=== PATIENT | female | born 1970 | race Caucasian/White ===

== ENCOUNTER 2019-03-09 08:34 | Emergency (ER) | payer MEDICAID, SELFPAY ==
[2019-03-09 08:36] VITALS: BP 98/75; PULSE 128; RESP 20; TEMP 36.7; O2SAT 98; BMI 18.8
[2019-03-09] MEDS: Orphenadrine 60 MG/2 ML Ampul IM (08:56)
[2019-03-09] MEDS: HYDROmorphone 1 MG/ML Syringe IM (08:56)
[2019-03-09 09:02] VITALS: BP 127/90; PULSE 115; RESP 16; TEMP 36.6; O2SAT 98
--- NOTE | 2019-03-09 09:02 | ED.VISSUMM ---
- ER Visit Summary Date of Service: 03/09/19 Chief Complaint: [Back pain] History of Present Illness: The patient is a 49 F [presents the emergency department complaint of pain in her back that started yesterday. Patient states she is visiting her mother who lives in [place] from [place]. Patient states that she ran into an old friend who gave her a big bearhug and picked her up off the ground and she immediately experienced discomfort in her low back. Patient tells me that she had a lumbar fusion in January. Patient states that since her surgery she is had numbness in her left leg. Patient now complains of severe low back pain radiating into her left leg. She denies loss of bowel or bladder. Patient states that at times it feels like her legs want to give out. Patient is able to ambulate. Patient denies urinary symptoms. She denies any fevers.] Physical Examination: [HEENT-PERRLA, EOMI. Cranial nerves II through XII grossly intact. TMs clear. Mucous membranes moist. No adenopathy. Cardiovascular-regular rate and rhythm without murmur or ectopy Lungs-clear to auscultation, chest wall stable without crepitus or subcu emphysema Abdomen-normoactive bowel sounds, soft, nontender, no rebound or rigidity, no peritoneal signs. Back exam-patient has a well-healing scar over the lumbar spine. Patient has diffuse tenderness to palpation of her lumbar spine and lumbar paraspinal musculature. She has negative straight leg raises. Deep tendon reflexes are plus 2 out of 4 bilaterally at the patella and Achilles. Patient has decreased sensation to the left leg compared to the right leg. Normal L5 extension bilaterally. Extremities-intact ?4, normal range of motion, normal pulses, atraumatic] Test Results: [X-rays of the lumbar spine obtained showed prior fusion but no evidence of new fracture or movement of pedicle screws.] Emergency Department Course and Treatment: [Patient was medicated with Dilaudid and Norflex. Patient had good pain relief.] Treatment Plan: [Patient given a prescription for Percocet and Flexeril. Patient advised to follow-up with her surgeon within next 3 to 5 days. I do not feel patient has cauda equina.] Disposition: [Discharged home stable condition] Impression: [Back pain Lumbar strain] This note was generated with [employer] software. It may contain incorrect words, spelling, and punctuation that were not noted in review of the chart prior to signing ED Disposition - Plan for ED Patient: Referrals: Care Physician,No Primary [Primary Care Provider] -
--- NOTE | 2019-03-09 09:22 | RAD_ITS ---
STUDY: X-RAY - LUMBAR SPINE REASON FOR EXAM: Female, 49 years old. Injury one day ago TECHNIQUE: 3 view(s) of the lumbar spine were obtained. COMPARISON: None FINDINGS: Normal alignment. No compression deformities. Bilateral posterior pedicle fusions at L3 and L4. L5-S1 disc space fusion. L3-4 disc space fusion. Diffuse degenerative disc and facet disease. L4-5 laminectomies. Rectal sutures. Pelvic phleboliths. RAD/Lumbar Spine 2 or 3 Views IMPRESSION: No acute osseous injury is evident. Comment: If there is further clinical concern for a radiographically occult spinal fracture, consider CT correlation if possible. Electronically Signed: Dixon Arellano MD at 9:37 EDT Tel , Service support ,
--- NOTE | 2019-03-09 09:56 | ED.DEP ---
ED Disposition - Plan for ED Patient: Instructions: ED Sprain Strain Lumbar, ED Neck Back Pain General Prescriptions: Oxycodone HCl/Acetaminophen [Percocet 5/325] 1 tab PO Q6H PRN PRN 5 Days #20 tab PRN Reason: Pain Cyclobenzaprine [Flexeril] 10 mg PO TID PRN #20 tab PRN Reason: Muscle Spasm Referrals: Care Physician,No Primary [Primary Care Provider] - Additional Instructions: see your surgeon in 3-5 days
[2019-03-09 10:08] VITALS: BP 124/88; PULSE 100; RESP 16; TEMP 36.6; O2SAT 98
== END 2019-03-09 10:09 | disposition home or self-care (01) ==
PROVIDERS: Emergency Provider Emergency Medicine
DX: M54.9 Dorsalgia, unspecified (principal); S39.012A Strain of muscle, fascia and tendon of lower back, initial encounter; X50.9XXA Other and unspecified overexertion or strenuous movements or postures, initial encounter; Y93.9 Activity, unspecified; Y92.89 Other specified places as the place of occurrence of the external cause; Y99.9 Unspecified external cause status; Z98.1 Arthrodesis status; Z72.0 Tobacco use
CPT/HCPCS: 72100; 96372; 99282

== ENCOUNTER 2023-12-11 13:40 | Emergency (ER) | payer MEDICAID, SELFPAY ==
[2023-12-11 13:42] VITALS: BP 129/88; PULSE 97; RESP 20; TEMP 36.2; O2SAT 100; BMI 18.9
[2023-12-11 14:01] VITALS: BP 135/80; PULSE 86; RESP 18; O2SAT 100
--- NOTE | 2023-12-11 14:20 | CT_ITS ---
STUDY: CT ABDOMEN AND PELVIS WITHOUT CONTRAST REASON FOR EXAM: Female, 53 years old. Left flank pain. Shortness of breath and back pain. RADIATION DOSAGE (If Supplied By Facility): CTDIvol = ( 6.04 ) mGy, DLP = ( 238.55 ) mGycm TECHNIQUE: Transaxial images were obtained from the dome of the diaphragm to the symphysis pubis without oral contrast, and without intravenous contrast. Sagittal and coronal images were reconstructed. Individualized dose optimization techniques were used for this CT. COMPARISON: None. FINDINGS: Increased linear markings at the left lung base suggestive of scarring. The visualized portions of the heart are within normal limits. Normal liver. Normal gallbladder and extrahepatic biliary system. Normal spleen. Normal pancreas. Normal bilateral adrenal glands. Normal right kidney. There is a 2 mm nonobstructive calculus in the upper pole calyx of the left kidney. Normal visualized stomach. Normal small intestine. Normal colon. The appendix is visualized and appears normal. There is diffuse atherosclerotic calcification of the abdominal aorta, without a demonstrated aneurysm. Normal inferior vena cava. Normal retroperitoneum. Diffuse bladder wall thickening although the bladder is not completely distended at this time. Calcified phleboliths are seen within the pelvis. The patient is status post hysterectomy. Normal abdominal wall. Multilevel spinal fusion with interpedicular screw and marquita fixation device. CT/Abdomen/Pelvis without Cont IMPRESSION: 2 mm nonobstructive calculus in the upper pole calyx of the left kidney. Electronically Signed: Jake Guajardo MD at 15:07 EST ,
--- NOTE | 2023-12-11 14:26 | ED.RN ---
NO OLD EKG
[2023-12-11 14:29] LABS: Mucous, Urine 0 SEEN /hpf (<or=2+); Red Blood Cells-Urine 0 SEEN /hpf (0-5)
[2023-12-11] MEDS: Morphine 4 MG/ML Syringe IV (14:29)
[2023-12-11] MEDS: Ondansetron 4 MG/2 ML Vial IV (14:29)
[2023-12-11] MEDS: 0.9% Normal Saline (1000mL) 1,000 ML 150 ML IV (14:29)
--- NOTE | 2023-12-11 14:34 | EDS_ITS ---
HPI History of Present Illness Chief Complaint: Shortness of Breath Detail of Chief Complaint: Left lower back pain, shortness of breath Informant: patient Narrative Narrative: Patient presents secondary to left lower back pain. She states when she woke this morning she had pain in the left lower back. She felt well when she went to bed last evening. She has had 3 prior surgeries on her back. She states because of the pain she is feeling short of breath. She is not having chest pain. She took Tylenol around 8 AM this morning but did not get much relief. She denies urinary symptoms. No vomiting or diarrhea. [facility] Medical History (Updated 12/11/23 @ 16:[address] Diamond Sim MD) Asthma COPD (chronic obstructive pulmonary disease) High cholesterol Hypertension Home Medications albuterol sulfate 90 mcg/actuation aerosol inhaler (ProAir HFA) 1 - 2 puff inhalation Q6H PRN PRN Sob &/Or Wheezing 03/09/19 [History Last Taken Unknown] atorvastatin 40 mg tablet 40 mg PO QHS 03/09/19 [History Last Taken Unknown] hydrocodone-acetaminophen 5-325mg 5mg-325mg 1 tab PO Q6H PRN PRN Pain 3 days #10 TABLETS 12/11/23 [Rx Last Taken Unknown] lidocaine 5 % topical patch (Lidoderm) 1 patch topical DAILY #6 ea 12/11/23 [Rx Last Taken Unknown] Allergy/AdvReac Type Severity Reaction Status Date / Time gabapentin AdvReac Mild Upset Verified 12/11/23 13:42 Stomach naproxen [From Naprosyn] AdvReac Mild Upset Verified 12/11/23 13:42 Stomach Social History Smoking Status: Current every day smoker tobacco type: cigarettes ROS ROS ED Constitutional Constitutional ED: Denies chills or fever(s) Eyes Eyes: Denies discharge from eye(s) ENT ENT ED: Denies discharge from eye(s), rhinorrhea or sore throat Cardiovascular Cardiovascular: Denies chest pain Respiratory/Chest Respiratory/Chest: Reports dyspnea; Denies cough Gastrointestinal Gastrointestinal: Denies abdominal pain, diarrhea, nausea or vomiting Genitourinary Genitourinary ED: Denies dysuria Musculoskeletal Musculoskeletal: Reports back pain; Denies extremity pain Integumentary Denies Abrasions or rash Neurologic Neurologic: Denies headache(s) or weakness Psychiatric Psychiatric: Reports anxiety; Denies depression Allergic/Immunologic Allergic/Immunologic ED: Denies lip swelling or urticaria EXAM Physical Exam Const Vital Signs: 12/11/23 13:42 12/11/23 14:01 12/11/23 15:00 Temperature 97.1 F L Temperature Source Temporal Pulse Rate 97 86 Respiratory Rate 20 H 18 Respiratory Effort Short of Breath Blood Pressure 129/88 H 135/80 H Blood Pressure Mean 101 98 Pulse Ox 100 100 Oxygen Delivery Method Room Air Room Air Positive well nourished and well developed General Appearance ED: well developed HEENT Reports moist mucous membranes Eyes EOMs intact bilaterally Chest Wall inspection of chest normal and palpation of chest normal Resp normal respiratory effort and clear to auscultation bilaterally Cardio regular rate and regular rhythm GI non-tender Palpation: soft Back/Spine Back/Spine Narrative: Reproducible tenderness in the left lumbar paraspinal muscles. No overlying skin change. Extremity normal to inspection Neuro oriented x3 Neuro Narrative: No focal neurologic deficit. 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 EKG obtained to evaluate for cardiac arrhythmia/ischemia. IV line established. Labwork obtained to evaluate for leukocytosis, anemia, and electrolyte derangement. Urinalysis obtained to evaluate for infection/hematuria. Chest x-ray obtained to evaluate for acute lung pathology, cardiac size, or mediastinal abnormality. CT flank obtained to evaluate for renal abnormality, kidney stone, bowel abnormality. Patient treated with morphine and Zofran for pain control. History & Record Review Discussion w/independent historian: Patient Lab Data Attestation: I reviewed the patient's lab results. Labs: Laboratory Results - last 24 hr 12/11/23 14:10 WBC 9.4 RBC 4.64 Hgb 13.5 Hct 41.1 MCV 88.6 MCH 29.1 MCHC 32.8 RDW Std Deviation 40.9 RDW Coeff of Otilia 12.6 Plt Count 323 MPV 9.8 Immature Gran % (Auto) 0.100 Neut % (Auto) 53.8 Lymph % (Auto) 38.5 [place] % (Auto) 5.8 Eos % (Auto) 1.5 Baso % (Auto) 0.3 Absolute Neuts (auto) 5.1 Absolute Lymphs (auto) 3.61 Nucleated RBC % 0 Sodium 142 Potassium 3.9 Chloride 109 H Carbon Dioxide 29.0 Anion Gap 4 L BUN 13 Creatinine 1.05 H Estim Creat Clear Calc 44.50 Est GFR (MDRD) Af Amer 70 Est GFR (MDRD) Non-Af 58 L BUN/Creatinine Ratio 12.4 Glucose 92 Calcium 9.3 Urine Color Yellow Urine Clarity Sl. Cloudy Urine pH 5.0 Ur Specific [place] 1.025 Urine Protein 30 H Urine Glucose (UA) Normal Urine Ketones 5 H Urine Occult Blood Negative Urine Nitrite Negative Urine Bilirubin Negative Urine Urobilinogen 1 H Ur Leukocyte Esterase 25 H Urine RBC 0 SEEN Urine WBC 0-5 SEEN Ur Squamous Epith Cells 5-10 SEEN Urine Bacteria 1+ Urine Mucus 0 SEEN Radiography Chest X-Ray - ED: 1 View, Read by ED Physician and - (Changes consistent with COPD. No infiltrate. No pneumothorax.) Diagnostic Testing: Clinical Impression(s) from Imaging Studies Abdomen/Pelvis CT 12/11/23 14:20 IMPRESSION: 2 mm nonobstructive calculus in the upper pole calyx of the left kidney. Electronically Signed: Jake Guajardo MD at 15:07 EST , Chest X-Ray 12/11/23 14:35 IMPRESSION: Hyperinflation. The lungs are clear. Electronically Signed: Jake Guajardo MD at 14:54 EST , EKG Initial EKG: Attestation: I personally reviewed and interpreted this EKG as follows: Interpretation: Sinus Rhythm (Sinus at 67 with no acute ischemia.) Treatment and Re-Evaluation :: CBC was normal white count 9.4 with normal differential. Hemoglobin is 13.5. Chemistry studies without any significant abnormalities. Urinalysis reveals 5- 10 epithelial cells with no evidence of infection. Portable chest x-ray per my interpretation reveals hyperinflation consistent with COPD. No infiltrate and no pneumothorax. Radiology interpretation reviewed and agrees. EKG reveals no evidence of ischemia. CT scan of the flank reveals a 2 mm left intrarenal stone. No other acute findings noted. On repeat evaluation patient lying in bed, smiling and talking on the phone. She is in no acute distress. Test results were discussed with her. I did advise her that she does have a stone in her left kidney, but I do not believe this is the cause of her current pain. I think her pain is musculoskeletal in nature. I will write her prescription for [place] with Lidoderm patches. She is to follow-up with her primary care physician in 5 to 7 days. Return instructions provided. Discharge Plan Triage Chief Complaint: Shortness of Breath ED Provider: Diamond Sim Dx/Rx/DC Orders Clinical Impression: Musculoskeletal back pain Instructions: ED Back Pain (Acute or Chronic) Prescriptions: New hydrocodone-acetaminophen 5-325 mg tablet 1 tab PO Q6H PRN PRN (Reason: Pain) 3 Days Qty: 10 0RF lidocaine [Lidoderm] 5 % adhesive patch,medicated 1 patch topical DAILY Qty: 6 0RF Rx Instructions: leave on most painful area for up to 12 hrs No Action atorvastatin 40 MG tablet 40 mg PO QHS albuterol sulfate [ProAir HFA] 1 PUFF inhaler 1 - 2 puff inhalation Q6H PRN PRN (Reason: Sob &/Or Wheezing) Primary Care Provider: Care Physician,No Primary Referrals: Sabiha Joshi MD [Med Staff - [employer]] - 5-7 Days Care Physician,No Primary [Primary Care Provider] - Disposition Disposition: Home, Self Care
--- NOTE | 2023-12-11 14:35 | RAD_ITS ---
STUDY: X-RAY CHEST REASON FOR EXAM: Female, 53 years old. Sob TECHNIQUE: Single AP portable view of the chest. COMPARISON: None. FINDINGS: EKG electrodes are seen. There is hyperinflation of the lungs consistent with chronic obstructive lung disease (COPD). There is no demonstrated pleural abnormality. Normal size heart. Normal mediastinum and marizol. Normal visualized pulmonary arteries. Normal visualized aortic arch and descending thoracic aorta. Normal visualized thoracic spine. Normal visualized ribs, clavicles, and shoulders. There is no demonstrated abnormality of the visualized soft tissue structures of the upper abdomen. RAD/Chest 1 View (Portable) IMPRESSION: Hyperinflation. The lungs are clear. Electronically Signed: Jake Guajardo MD at 14:54 EST ,
[2023-12-11 14:36] LABS: Absolute Lymphocyte Count 3.61 X10^3/uL (0.83-4.51); Absolute Neutrophil Count 5.1 X10^3/uL (2.0-7.7); Basophil# 0.03 X10^3/uL; Basophil% 0.3 % (0-1); Color, Urine Yellow (Yellow); Eosinophil# 0.14 X10^3/uL; Eosinophils% 1.5 % (0-5); Glucose, Dipstick Normal (Normal); Hematocrit 41.1 % (37-47); Hemoglobin 13.5 g/dL (12.0-15.0); Ketone-Dipstick 5 mg/dl (Negative); Leukocyte Esterase-Dipstick 25 /ul (Negative); Lymphocyte # 3.61 X10^3/ul (0.83-4.51); Lymphocyte % 38.5 % (19-41); Mean Corp Hgb Conc 32.8 g/dL (32-36); Mean Corpuscular Hgb 29.1 pg (27.0-32.0); Mean Corpuscular Volume 88.6 fL (81-99); Mean Platelet Vol. 9.8 fl (6.2-12.0); Monocyte# 0.54 X10^3/uL; Monocyte% 5.8 % (0-10); NRBC Flagged by Analyzer 0 % (0-5); Neutrophil # 5.05 X10^3/uL (2.7-7.7); Neutrophil % 53.8 % (47-70); Nitrite-Dipstick Negative (Negative); Occult Blood-Urine Negative /ul (Negative); Platelet Count 323 K/mm3 (150-450); Protein-Dipstick 30 mg/dl (Negative); RBC Distribution Width CV 12.6 % (11.6-14.6); RBC Distribution Width SD 40.9 fl (35.1-43.9); Red Blood Count 4.64 M/mm3 (4.2-5.4); Specific Gravity, Urine 1.025 (1.002-1.030); Urine Bilirubin Dipstick Negative (Negative); Urine Clarity Sl. Cloudy (Clear); Urine Urobilinogen 1 mg/dl (Normal); White Blood Count 9.4 K/mm3 (4.4-11.0)
[2023-12-11 14:45] LABS: Bacteria 1+ /hpf (None Seen); Squamous Epithelial Cells - UA 5-10 SEEN /hpf (5-10); White Blood Cells 0-5 SEEN /hpf (0-5)
[2023-12-11 14:49] LABS: Anion Gap 4 (5-15); BUN 13 mg/dL (7-18); BUN/Creat Ratio 12.4 RATIO (10-20); Calcium,Total 9.3 mg/dL (8.5-10.1); Chloride 109 mmol/L (98-107); Creatinine, Serum 1.05 mg/dL (0.55-1.02); EST Glomerular Filtration Rate 58 mL/min (>60); Est Glom Filt Rate - Afr Amer 70 mL/min (>60); Glucose 92 mg/dL (74-106); Potassium 3.9 mmol/L (3.5-5.1); Sodium Level 142 mmol/L (136-145)
[2023-12-11 15:00] VITALS: O2SAT 99
--- OUTSIDE RECORDS SUMMARY | 2023-12-11 15:21 | XMS RPT_ITS | CCD ---
Author Name Unknown Address [address] [place] [address] Organization [facility] Care Team Providers Care Forest Logistics Manager Name Role Phone Colin Pandya Unavailable Unavailable Colin Pandya Unavailable Unavailable PARESH REEVES Attending Unavailable PARESH REEVES Admitting Unavailable Physician, PCP Unknown Primary Care Unavailab CRESENCIO Mauro Referring Unavailable GIN BANERJEE Primary Care Unava ilable SOTERO EISENBERG Consulting Unavailabl JEFRY Garcia Admitting Anneliese WILL Garcia Attending Unavailab le Gin Banerjee Primary Care Provider Gin Banerjee Primary Care Provider Field [id number], Akhil Unavailable Unavailable Gin Banerjee Primary Care Provider Gin Banerjee CNP Primary Care Prov ider HELDER DE LA TORRE Admitting Unavailable HELDER DE LA TORRE Referring Unavailable GIN BANERJEE Primary Care Unava ilable MARTELL KENNEDY Consulting Unavailable CALL, MERLYN A Referring Unavailable STEPHANIE SWEET Attending Unavailable GIN BANERJEE Primary Care Unava ilable MARTELL KENNEDY Admitting Unavailable BLESSING KAM Consulting Unavailab le CALL MERLYN A Attending Unavailable GIN BANERJEE Primary Care Unavailabl e Gin Banerjee CNP Primary Care Provider Field [address] PT, Akhil Unavailable Unavailab le Field [address] PT, Akhil Unavailable Unavailab le Lavonne Gin GARIBAY Primary Care Provider Field [address] PT, Akhil Unavailable Unavailab le Lavonne Gin GARIBAY Primary Care Provider Field [address] PT, Akhil Unavailable Unavailab haris Banerjee, Gin Primary Care UnavailPHOENIX Simon Admitting Unavailable PHOENIX Ramirez Attending Unavailable PHOENIX Ramirez Referring Unavailable Lavonne, PHOENIX Greenfield Attending Silviano Banerjee, PHOENIX [place] Referring Unavai labharis Banerjee, Gin Primary Care Unavailabl e Lavonne, PHOENIX Green[place] Admitting Unavai labharis Banerjee, Gin Primary Care Unavailabl e MD Dimas Palencia Attending Unavailable ALFIE LUNA Attending Unavailable LAVONNE, GIN Primary Care Unavailabl e LAVONNE, GIN Referring Unavailabl e JULIEN ROBBINS Attending Unavailable PCP, NONE Primary Care Unavailable CRISTIAN DE LA CRUZ Referring Unavailable LINDA YOUNGER Attending Unavailable GIN BANERJEE Primary Care UnavailLINDA Yu Admitting Unavailable Allergies Allergy Classification Reported Allergen(s) Allergy Type Date of Onset Reaction(s) Facility Anti-Epileptic Agents (2 sources) gabapentin; Translations: [GABAPENTIN] Drug Allergy 0 Diarrhea [facility] Opioid Agonists (2 sources) traMADol; Translations: [TRAMADOL] Drug Allergy 0 GI Intolerance [facility] (2 sources) No Known Medication Allergies; Translations: [No Known Medication Allergies] Propensity to adverse reactions to drug (disorder) [facility] Repository (13 sources) gabapentin; Translations: [Unknown] Drug Allergy 4 Diarrhea [facility] Repository (12 sources) traMADol; Translations: [traMADol] Drug Allergy 4 GI Intolerance [facility] (10 sources) pregabalin; Translations: [Lyrica] Drug Allergy 4 [facility] Medications Current Medications Medication Drug Class(es) Dates Sig (Normalized) Sig (Original) acetaminophen 325 mg oral tablet (4 sources) Start: 08-03-2021 End: 06-29-2021 take 2 tablets by mouth every four hours as needed acetaminophen (TYLENOL) 325 MG tablet Take 2 (two) tablets (650 mg total) by mouth every 4 (four) hours as needed . 30 tablet 0 06/19/2021 06/29/2021 Active Completed/Discontinued Medications Medication Drug Class(es) Dates Sig (Normalized) Sig (Original) acetaminophen 325 mg / HYDROcodone bitartrate 5 mg oral tablet (1 source) Opioid Agonist Start: 01-20-2020 End: 01-20-2020 take 1 tablet by mouth every four hours as needed 1 tablet, Oral, Every 4 hours PRN, moderate to severe pain, Starting [facility] 01/20/20 at 0254 albuterol 0.833 mg/ml / ipratropium bromide 0.167 mg/ml inhalation solution (6 sources) Anticholinergic, beta2-Adrenergic Agonist Start: 05-27-2023 End: 05-27-2023 albuterol 2.5mg-ipratropium 0.5mg/3ml (DUONEB) nebulizer soln 6 mL Problems Active Problems Problem Classification Problem Date Documented Da te Episodic/Chronic Acute bronchitis (2 sources) Acute bronchitis with bronchospasm; Translations: [Acute bronchitis, unspecified] Onset: 05-27-2023 Episodic Alcohol-related disorders (1 source) Alcohol intoxication; Translations: [Alcohol use, unspecified with intoxication, uncomplicated] Episodic Cardiac dysrhythmias (3 sources) Bradycardia; Translations: [Bradycardia] Onset: 08-28-2015 08-28-2015 Chronic Chronic obstructive pulmonary disease and bronchiectasis (6 sources) Chronic obstructive lung disease co-occurrent with acute bronchitis; Translations: [Chronic obstructive pulmonary disease with (acute) lower respiratory infection] Onset: 05-27-2023 Chronic E Codes: Fall (1 source) Fall; Translations: [Unspecified fall, initial encounter] Episodic Esophageal disorders (1 source) Gastro-esophageal reflux disease without esophagitis; Translations: [Gastro-esophageal reflux disease without esophagitis] Onset: 08-05-2023 Chronic Essential hypertension (1 source) Essential (primary) hypertension; Translations: [Essential (primary) hypertension] Onset: 05-27-2023 Chronic Hepatitis (1 source) Unspecified viral hepatitis C without hepatic coma; Translations: [Unspecified viral hepatitis C without hepatic coma] Onset: 05-27-2023 Episodic Immunizations and screening for infectious disease (1 source) Contact with or exposure to other viral diseases; Translations: [Lab test negative for COVID-19 virus] Episodic Intracranial injury (1 source) Concussion with no loss of consciousness; Translations: [Concussion without loss of consciousness, initial encounter] Episodic Mood disorders (1 source) Mood disorders; Translations: [Depression, unspecified] Onset: 05-27-2023 Open wounds of head; neck; and trunk (3 sources) Laceration of left eyelid; Translations: [Laceration without foreign body of left eyelid and periocular area, initial encounter] Onset: 06-18-2021 Episodic Other connective tissue disease (1 source) Fibromyalgia; Translations: [Fibromyalgia] Onset: 05-27-2023 Episodic Other connective tissue disease (1 source) Arthrodesis status; Translations: [Arthrodesis status] Onset: 05-27-2023 Episodic Other lower respiratory disease (1 source) Tachypnea; Translations: [Tachypnea, not elsewhere classified] Episodic Pneumonia (except that caused by tuberculosis or sexually transmitted disease) (1 source) Infective pneumonia; Translations: [Pneumonia, unspecified organism] Episodic Residual codes; unclassified (1 source) Tobacco user; Translations: [Tobacco use] Episodic Spondylosis; intervertebral disc disorders; other back problems (4 sources) Lumbar discitis; Translations: [Discitis, unspecified, lumbar region] Onset: 01-20-2020 01-20-2020 Chronic Spondylosis; intervertebral disc disorders; other back problems (2 sources) Acute low back pain; Translations: [Chronic low back pain] Episodic Substance-related disorders (3 sources) Smoker; Translations: [Nicotine dependence, unspecified, uncomplicated] Onset: 05-27-2023 Chronic Superficial injury; contusion (2 sources) Contusion of rib; Translations: [Contusion of left front wall of thorax, initial encounter] Onset: 05-27-2023 Episodic Unclassified (2 sources) M48.061 Onset: 11-17-2018 Urinary tract infections (1 source) Acute cystitis; Translations: [Acute cystitis with hematuria] Episodic Past or Other Problems Problem Classification Problem Date Documented Date Episodic/Chronic Cardiac dysrhythmias (6 sources) Bradycardia; Translations: [Bradycardia, unspecified] Onset: 08-28-2015 08-28-2015 Episodic Nonspecific chest pain (9 sources) Chest pain; Translations: [Chest pain, unspecified] Onset: 08-28-2015 08-28-2015 Episodic Other and unspecified benign neoplasm (14 sources) History of polyp of colon; Translations: [Personal history of colonic polyps] Onset: 03-14-2020 03-14-2020 Episodic Residual codes; unclassified (1 source) Postmenopausal state; Translations: [Post-menopausal] Episodic Residual codes; unclassified (7 sources) Family history of cancer of colon; Translations: [Family history of malignant neoplasm of digestive organs] Onset: 03-14-2020 03-14-2020 Episodic Residual codes; unclassified (7 sources) Family history of polyp of colon; Translations: [Family history of colonic polyps] Onset: 04-12-2020 04-12-2020 Episodic Results Test Name Value Interpretation Reference Range Facil ity Vital Signs Date Time Vital Sign Value Performing Clinician Facility 05-27-2023 19:32-0400 Body temperature 98.01 [degF] Linda Younger MD Work Phone: [facility] 05-27-2023 19:32-0400 Diastolic blood pressure 74 mm[Hg] Linda Younger MD Work Phone: [facility] 05-27-2023 19:32-0400 Heart rate 93 /min Linda Younger MD Work Phone: [facility] 05-27-2023 19:32-0400 Respiratory rate 24 /min Linda Younger MD Work Phone: [facility] 05-27-2023 19:32-0400 SaO2% (BldA) [Mass fraction] 99 % Linda Younger MD Work Phone: [facility] 05-27-2023 19:32-0400 Systolic blood pressure 129 mm[Hg] Linda Younger MD Work Phone: [facility] 05-27-2023 16:50-0400 Body height 154.9 cm Linda Younger MD Work Phone: [facility] 05-27-2023 16:50-0400 Body mass index (BMI) [Ratio] 16.25 kg/m2 Linda Younger MD Work Phone: [facility] 05-27-2023 16:50-0400 Body weight 39.01 kg Linda Younger MD Work Phone: [facility] 07-17-2022 14:31-0400 Heart rate 88 /min Cristina Esposito MD Work Phone: [facility] 07-17-2022 14:31-0400 SaO2% (BldA) [Mass fraction] 100 % Cristina Esposito MD Work Phone: [facility] 07-17-2022 14:00-0400 Body height 154.9 cm Cristina Esposito MD Work Phone: [phone] [address] 07-17-2022 14:00-0400 Body mass index (BMI) [Ratio] 17.76 kg/m2 Cristina Esposito MD Work Phone: [facility] 07-17-2022 14:00-0400 Body temperature 98.91 [degF] Cristina Esposito MD Work Phone: [facility] 07-17-2022 14:00-0400 Body weight 42.64 kg Cristina Esposito MD Work Phone: [facility] 07-17-2022 14:00-0400 Diastolic blood pressure 60 mm[Hg] Cristina Esposito MD Work Phone: [facility] 07-17-2022 14:00-0400 Respiratory rate 20 /min Cristina Esposito MD Work Phone: [facility] 07-17-2022 14:00-0400 Systolic blood pressure 137 mm[Hg] Cristina Esposito MD Work Phone: [facility] 05-04-2022 08:40-0400 Body temperature 98.1 [degF] Helder Waters MD Work Phone: [phone] [address] 05-04-2022 08:40-0400 Diastolic blood pressure 83 mm[Hg] Helder Waters MD Work Phone: [facility] 05-04-2022 08:40-0400 Heart rate 98 /min Helder Waters MD Work Phone: [facility] 05-04-2022 08:40-0400 Respiratory rate 24 /min Helder Waters MD Work Phone: [facility] 05-04-2022 08:40-0400 SaO2% (BldA) [Mass fraction] 99 % Helder Waters MD Work Phone: [facility] 05-04-2022 08:40-0400 Systolic blood pressure 142 mm[Hg] Helder Waters MD Work Phone: [phone] [place] [address] 05-04-2022 07:14-0400 Body height 154.9 cm Helder Waters MD Work Phone: [phone] [address] 05-04-2022 07:14-0400 Body mass index (BMI) [Ratio] 18.14 kg/m2 Helder Waters MD Work Phone: 5([phone])[phone] [address] 05-04-2022 07:14-0400 Body weight 43.55 kg Helder Waters MD Work Phone: [facility] 04-18-2022 11:40-0400 Body temperature 98.6 [degF] Remi Springer MD Work Phone: [facility] 04-18-2022 11:40-0400 Diastolic blood pressure 85 mm[Hg] Remi Springer MD Work Phone: [facility] 04-18-2022 11:40-0400 Heart rate 106 /min Remi Springer MD Work Phone: [facility] 04-18-2022 11:40-0400 Respiratory rate 18 /min Remi Springer MD Work Phone: [facility] 04-18-2022 11:40-0400 SaO2% (BldA) [Mass fraction] 99 % Remi Springer MD Work Phone: [facility] 04-18-2022 11:40-0400 Systolic blood pressure 162 mm[Hg] Remi Springer MD Work Phone: [employer] 04-18-2022 09:36-0400 Body height 154.9 cm Remi Springer MD Work Phone: [facility] [employer] [facility] [facility] 04-18-2022 09:36-0400 Body mass index (BMI) [Ratio] 18.14 kg/m2 Remi Springer MD Work Phone: [facility] 04-18-2022 09:36-0400 Body weight 43.55 kg Remi Springer MD Work Phone: [employer] 02-04-2022 19:44-0400 Body temperature 98.01 [degF] Cristina Esposito MD Work Phone: [facility] [employer] 02-04-2022 19:44-0400 Diastolic blood pressure 70 mm[Hg] Cristina Esposito MD Work Phone: [employer] 02-04-2022 19:44-0400 Heart rate 88 /min Cristina Esposito MD Work Phone: [employer] 02-04-2022 19:44-0400 Respiratory rate 20 /min Cristina Esposito MD Work Phone: [facility] [employer] 02-04-2022 19:44-0400 SaO2% (BldA) [Mass fraction] 99 % Cristina Esposito MD Work Phone: [employer] 02-04-2022 19:44-0400 Systolic blood pressure 138 mm[Hg] Cristina Esposito MD Work Phone: [employer] 02-04-2022 18:51-0400 Body height 154.9 cm Cristina Esposito MD Work Phone: [employer] 02-04-2022 18:51-0400 Body mass index (BMI) [Ratio] 18.14 kg/m2 Cristina Esposito MD Work Phone: [employer] 02-04-2022 18:51-0400 Body weight 43.55 kg Cristina Esposito MD Work Phone: [facility] 07-27-2021 20:01-0400 Body temperature 98.2 [degF] Linda Younger MD Work Phone: [facility] 07-27-2021 20:01-0400 Diastolic blood pressure 68 mm[Hg] Linda Younger MD Work Phone: [facility] 07-27-2021 20:01-0400 Heart rate 93 /min Linda Younger MD Work Phone: [facility] 07-27-2021 20:01-0400 Respiratory rate 16 /min Linda Younger MD Work Phone: [facility] 07-27-2021 20:01-0400 SaO2% (BldA) [Mass fraction] 95 % Linda Younger MD Work Phone: [facility] 07-27-2021 20:01-0400 Systolic blood pressure 128 mm[Hg] Linda Younger MD Work Phone: [facility] 07-27-2021 18:15-0400 Body height 154.9 cm Linda Younger MD Work Phone: [facility] 07-27-2021 18:15-0400 Body mass index (BMI) [Ratio] 18.89 kg/m2 Linda Younger MD Work Phone: [facility] 07-27-2021 18:15-0400 Body weight 45.36 kg Linda Younger MD Work Phone: [facility] 06-19-2021 16:57-0400 Body temperature 98.01 [degF] Helder De La Torre MD Work Phone: [facility] 06-19-2021 16:57-0400 Diastolic blood pressure 70 mm[Hg] Helder De La Torre MD Work Phone: [facility] 06-19-2021 16:57-0400 Heart rate 74 /min Helder De La Torre MD Work Phone: [facility] 06-19-2021 16:57-0400 Respiratory rate 15 /min Helder De La Torre MD Work Phone: [facility] 06-19-2021 16:57-0400 SaO2% (BldA) [Mass fraction] 95 % Helder De La Torre MD Work Phone: [facility] 06-19-2021 16:57-0400 Systolic blood pressure 113 mm[Hg] Helder De La Torre MD Work Phone: [facility] 06-18-2021 21:33-0400 Body height 154.9 cm Helder De La Torre MD Work Phone: [facility] 06-18-2021 21:33-0400 Body mass index (BMI) [Ratio] 20.41 kg/m2 Helder De La Torre MD Work Phone: [facility] 06-18-2021 21:33-0400 Body weight 48.99 kg Helder De La Torre MD Work Phone: [facility] 02-02-2020 14:04-0400 Body Temperature 97.9 [degF] Crispintimothy Pradhan [facility] 02-02-2020 14:04-0400 BP Diastolic 77 mm[Hg] Crispin Lorne [facility] 02-02-2020 14:04-0400 BP Systolic 143 mm[Hg] Crispin Lorne [facility] 02-02-2020 14:04-0400 Pulse (Heart Rate) 87 /min [facility] 02-02-2020 14:04-0400 Pulse Oximetry 100 % Crispin Lorne [facility] 02-02-2020 14:04-0400 Respiratory Rate 16 /min Crispin Lorne [facility] 02-02-2020 12:46-0400 BMI (Body Mass Index) 17.95 kg/m2 Crispin Lorne [facility] 02-02-2020 12:46-0400 Body weight 43.09 kg Crispin Lorne [facility] 02-02-2020 12:46-0400 Height 154.9 cm Crispin Lorne [facility] 01-20-2020 12:56-0500 Respiratory Rate 14 /min [facility] 01-20-2020 07:41-0500 Body Temperature 98.01 [degF] [facility] 01-20-2020 07:41-0500 BP Diastolic 72 mm[Hg] [facility] 01-20-2020 07:41-0500 BP Systolic 124 mm[Hg] [facility] 01-20-2020 07:41-0500 Pulse (Heart Rate) 70 /min [facility] 01-20-2020 07:41-0500 Pulse Oximetry 96 % [facility] 01-19-2020 22:19-0500 BMI (Body Mass Index) 17.95 kg/m2 [facility] 01-19-2020 22:19-0500 Body weight 43.09 kg [facility] 01-19-2020 22:19-0500 Height 154.9 cm [facility] 01-19-2019 14:47-0500 Systolic blood pressure PARESH [facility] 01-19-2019 10:03-0500 Systolic blood pressure PARESH [facility] Encounters Encounter Date Encounter Type Care Provider Facility Start: 08-05-2023 End: 08-05-2023 ambulatory JULIEN [facility] Start: 07-07-2023 Evaluation and management of inpatient MERCHANDISING ASSISTANT Ginhelen Banerjee [place] Start: 05-27-2023 End: 05-27-2023 Emergency department patient visit LINDA YOUNGER [facility] Start: 05-27-2023 End: 05-27-2023 Emergency department patient visit Linda Younger MD Work Phone: [facility] Emergency Dept Procedures Date Procedure Procedure Detail Performing Clinician Start: 05-27-2023 Radex ribs uni w/posteroant ch minimum 3 views Linda Younger MD Work Phone: Start: 07-17-2022 Radiologic exam ches t single view Naa Paulino APRN MERCHANDISING ASSISTANT Work Phone: Start: 07-17-2022 Sars-cov-2 detection by dna/rna Naa Paulino APRN MERCHANDISING ASSISTANT Work Phone: Start: 05-04-2022 Radiologic exam ches t single view Helder Waters MD Work Phone: Start: 05-04-2022 ABG WITH CO-OX, LYTE S, AND LACTATE Helder Waters MD Work Phone: Start: 05-04-2022 CBC W Auto Different ial panel - Blood Helder Waters MD Work Phone: Start: 05-04-2022 Comprehensive metabo lic panel Helder Waters MD Work Phone: Start: 05-04-2022 GLOMERULAR FILTRATION RATE Helder Waters MD Work Phone: Start: 05-04-2022 Sars-cov-2 detection by dna/rna Helder Waters MD Work Phone: Start: 05-04-2022 Ecg routine ecg w/le ast 12 lds trcg only w/o i&r Helder Waters MD Work Phone: Start: 04-18-2022 ABG (DRAW AND ANALYZE) Milton Doty APRN MERCHANDISING ASSISTANT Work Phone: Start: 04-18-2022 Radiologic exam ches t single view Milton Doty APRN MERCHANDISING ASSISTANT Work Phone: Start: 04-18-2022 Infectious agent dna /rna influenza 1st 2 types Milton Doty APRN MERCHANDISING ASSISTANT Work Phone: Start: 04-18-2022 Sars-cov-2 detection by dna/rna Milton Doty APRN MERCHANDISING ASSISTANT Work Phone: Start: 04-18-2022 CBC W Auto Different ial panel - Blood Milton Doty APRN MERCHANDISING ASSISTANT Work Phone: Start: 04-18-2022 Comprehensive metabo lic panel Milton Doty APRN MERCHANDISING ASSISTANT Work Phone: Start: 04-18-2022 GLOMERULAR FILTRATION RATE Milton Doty APRN MERCHANDISING ASSISTANT Work Phone: Start: 04-18-2022 Ecg routine ecg w/le ast 12 lds trcg only w/o i&r Milton Doty APRN MERCHANDISING ASSISTANT Work Phone: Start: 02-04-2022 Urnls dip stick/tabl et rgnt non-auto w/o micrscp Felicity Jones DO Work Phone: Start: 07-27-2021 Radiologic exam ches t single view Milton Doty APRN [facility] Work Phone: Start: 07-27-2021 Sars-cov-2 detection by dna/rna Linda Younger MD Work Phone: Start: 07-27-2021 Ecg routine ecg w/le ast 12 lds trcg only w/o i&r Milton Doty APRN [facility] Work Phone: Start: 07-27-2021 Basic metabolic pane l calcium total Milton Doty APRN [facility] Work Phone: Start: 07-27-2021 CBC W Auto Different ial panel - Blood Milton Doty APRN [facility] Work Phone: Start: 07-27-2021 GLOMERULAR FILTRATION RATE Milton Doty APRN [facility] Work Phone: Start: 06-19-2021 SARS-CoV-2 (COVID-19 ) RdRp gene [Presence] in Respiratory specimen by MARTHA with probe detection Radha Noble [facility] Work Phone: Start: 06-19-2021 Basic metabolic pane l calcium total Ena Brearey DO Work Phone: Start: 06-18-2021 Radiologic exam ches t single view Helder De La Torre MD Work Phone: Start: 06-18-2021 Computerized tomogra phy, limited studies Helder De La Torre MD Work Phone: Start: 06-18-2021 Basic metabolic pane l calcium total Helder De La Torre MD Work Phone: Start: 06-18-2021 Blood ethanol measurement Helder De La Torre MD Work Phone: Start: 04-24-2020 Dxa bone density danica dy 1/> sites axial skel Gin Banerjee Work Phone: Start: 01-20-2020 C reactive protein [Mass/volume] in Serum or Plasma Jefry Wallerrdena Work Phone: Start: 01-20-2020 Complete blood count with white cell differential, automated Jefry Wallerrdena Work Phone: Start: 01-20-2020 Complete blood count with white cell differential, manual Jefry Wallerrdena Work Phone: Start: 01-20-2020 Erythrocyte sediment ation rate by Westergren method Jefry Wallerrdena Work Phone: Start: 01-20-2020 HERBERT TOP Jefry Wallerrdena Work Phone: Start: 01-20-2020 LIGHT BLUE TOP Jefry Wallerrdena Work Phone: Start: 01-20-2020 LIGHT GREEN TOP Jefry Connerawardena Work Phone: Start: 01-20-2020 PINK TOP Jefry Connerawardena Work Phone: Start: 01-20-2020 RAINBOW DRAW Jefry Wallerrdena Work Phone: Start: 01-19-2020 Influenza virus A AN D B antigen assay Naa Thurman Work Phone: Start: 01-19-2020 End: 01-19-2020 Magnetic resonance imaging Naa Bates Work Phone: Start: 01-19-2020 Radiographic imaging procedure Naa Thurman Work Phone: Start: 01-19-2020 Computerized tomogra phy, limited studies Naa Thurman Work Phone: Plan of Treatment Date Care Activity Detail Author Start: 08-07-2025 Colonoscopy COLONOSCOPY 10 YR [facility] Start: 08-07-2025 Screening for malignant neoplasm of colon [facility] Start: 08-12-2023 ambulatory Ambulatory [facility] Start: 07-18-2023 Influenza vaccination given INFLUENZA VACCINE (#1) [facility] Start: 07-18-2022 Influenza vaccination given [facility] Start: 10-04-2021 End: 10-04-2021 Patient encounter procedure 10/04/2021 Office Visit Gastroenterology Carlita Robison, ARCHIVAL STUDIES PROFESSOR VACCINATOR [address] [place] [address] [facility] Start: 07-18-2021 Influenza vaccination given INFLUENZA VACCINE (#1) [facility] Start: 07-18-2020 Influenza vaccination given [facility] Start: 06-08-2020 End: 06-08-2020 Hospital Encounter [facility] Immunizations Immunization Date Immunization Notes Care Provider Fa cili 10-31-2009 influenza virus vacc ine, unspecified formulation Crispin Pradhan [facility] [facility] Payers Date Payer Category Payer Unknown 2016 Unknown [id number] 2015 Medicaid [id number]. [id number] 2015 Medicaid [id number]. [id number] 2015 Medicaid [id number] 1970 Unknown [id number] 2.16.8 [id number] 1970 Unknown [id number] 2.16.8 [id number] 1970 Unknown [id number] 2.16. [id number] 1970 Unknown [id number] 2.16. [id number] 1970 Unknown [id number] 2.16.84 [id number] 1970 Unknown [id number] 2.16.8 [id number] 1970 Unknown [id number] 2.16.8 [id number] 1970 Unknown [id number] 2.16.8 [id number] 1970 Unknown [id number] 2.16. [id number] 1970 Unknown [id number] 2.16. [id number] 1970 Unknown [id number] 2.16. [id number] Social History Date Type Detail Facility Start: 01-19-2020 End: 07-17-2022 Tobacco smoking status CTIS Current every day smoker [facility] History of tobacco use Cigarette Smoker [facility] Start: 01-19-2020 End: 07-17-2022 Cigarettes smoked current (pack per day) - Reported [facility] Start: 01-19-2020 Alcohol intake Ex-drinker (finding) [facility] Start: 1970 Sex Assigned At Not on file [facility] Start: 02-02-2020 End: 07-17-2022 Alcohol intake Current drinker of alcohol (finding) [facility] Start: 07-07-2015 Alcohol Comment monthly [facility] Start: 1970 [facility] Start: 01-19-2020 End: 07-17-2022 Tobacco use and exposure Never used [facility] Start: 03-09-2020 Alcohol Comment occ. [facility] Start: 07-07-2022 End: 07-17-2022 Exposure to SARS-CoV-2 (event) Not sure [facility] Clinical Notes 06-18-2021 to 05-27-2023 Discharge InstructionsAttaAgueda Marshall RN - 05/27/2023 4:48 PM Agueda Tariq RN - 05/27/2023 4:48 PM Gin Pagan LPN - 07/17/2022 3:14 PM EDTInstructionsAttachmentsInstructions Note Date & Type Note Facility 05-27-2023 Hospital Discharge instructions Linda Younger MD - 05/27/2023 7:19 PM EDT Take medications as prescribed. Please use the albuterol inhaler 2 puffs every 4 hours while awake for the next 2-3 days, then every 4-6 hours as needed for cough, wheezing, and difficulty breathing. Please stop smoking. Use the incentive spirometer (breathing machine) 10 times every 2 hours while you are awake to help prevent pneumonia. The following attachments cannot be sent through Care Everywhere.COPD: Exacerbation ([place])Bronchitis ([place])Smoking Cessation: Health Benefits: General Info ([place])documented in this encounter [facility] 05-27-2023 Emergency department Triage note Pt with cough for approx three or four days. Pt states crawled through her sisters window and sustained an injury to her left rib cage. Coughing continues today. No fever. Pt pink warm dry,NAD noted. Resp even easy. Pt states is coughing up yellow sputum. [facility] 05-27-2023 Emergency department Note Pt with cough for approx three or four days. Pt states crawled through her sisters window and sustained an injury to her left rib cage. Coughing continues today. No fever. Pt pink warm dry,NAD noted. Resp even easy. Pt states is coughing up yellow sputum. documented in this encounter [facility] 07-17-2022 Emergency department Note Discharge instructions, follow up care, and prescriptions discussed and educated with patient at this time. Pt denies further questions or concerns and states verbal understanding regarding same. Pt refused D/C VS. Respirations easy, regular, and unlabored. Skin is warm, dry, and intact. Pt is alert and oriented x3. Pt escorted to lobby with all personal belongings. [facility] 07-17-2022 Emergency department Note Discharge instructions, follow up care, and prescriptions discussed and educated with patient at this time. Pt denies further questions or concerns and states verbal understanding regarding same. Pt refused D/C VS. Respirations easy, regular, and unlabored. Skin is warm, dry, and intact. Pt is alert and oriented x3. Pt escorted to lobby with all personal belongings. I saw and evaluated this patient with JOE, Tanya Plasencia. I agree with the assessment and plan as discussed with myself. Patient is a 52-year-old female with a history of COPD presents today with cough. Patient states she has been coughing for the last 3 to 4 weeks. Cough is productive. Denies any fevers or any other symptoms. Initially on exam patient reported to have wheezing however on my evaluation after breathing treatment patient's lungs were clear. Chest x-ray does not show any evidence of infiltrate or other acute abnormality. COVID test is negative. Patient likely with bronchitis, will plan to treat with steroid, antibiotic and antitussive. Patient felt safe for discharge. Encouraged her to follow-up with pulmonology. Cristina Esposito MD 07/17/22 1504 Pt reports sinus congestion and cough for approx 3 weeks. Reports gets like this a couple times per year. Has not tried any medications. Reports white sputum with cough. Denies fevers, nausea, vomiting, diarrhea. Alert. Respirations easy. Congested cough noted. documented in this encounter [facility] 07-17-2022 Physician Emergency department Note I saw and evaluated this patient with JOE, Tanya Plasencia. I agree with the assessment and plan as discussed with myself. Patient is a 52-year-old female with a history of COPD presents today with cough. Patient states she has been coughing for the last 3 to 4 weeks. Cough is productive. Denies any fevers or any other symptoms. Initially on exam patient reported to have wheezing however on my evaluation after breathing treatment patient's lungs were clear. Chest x-ray does not show any evidence of infiltrate or other acute abnormality. COVID test is negative. Patient likely with bronchitis, will plan to treat with steroid, antibiotic and antitussive. Patient felt safe for discharge. Encouraged her to follow-up with pulmonology. Cristina Esposito MD 07/17/22 1504 [facility] 07-17-2022 Emergency department Triage note Pt reports sinus congestion and cough for approx 3 weeks. Reports gets like this a couple times per year. Has not tried any medications. Reports white sputum with cough. Denies fevers, nausea, vomiting, diarrhea. Alert. Respirations easy. Congested cough noted. [facility] 05-04-2022 Emergency department Note Xray at bedside Physician at bedside. ED Diagnosis and Summary No diagnosis found. ED Summary History Chief Complaint Patient presents with Shortness of Breath Patient's medications and allergies were reviewed and updated as appropriate. Patient's medications, allergies, past medical, surgical, social and family histories were reviewed and updated as appropriate. 1 week cough increasing dyspnea, no improvement with nebulizer treatment at home today Seen in ED on 04/18 with COPD exacerbation, given doxycycline and prednisone with some improvement, symptoms again worsened after finishing steroids History COPD/current smoker, hysterectomy, fibromyalgia, hepatitis C, hypertension NO OTHER MODIFYING FACTORS/ASSOCIATED SX ENTRIES OTHER CAREGIVERS REVIEWED AND AGREE UNLESS STATED OTHERWISE Review of Systems Constitutional: Negative. HENT: Negative. Eyes: Negative. Respiratory: Positive for cough and shortness of breath. Cardiovascular: Negative. Gastrointestinal: Negative. Genitourinary: Negative. Musculoskeletal: Negative. Skin: Negative. Neurological: Negative. Psychiatric/Behavioral: Negative. All other systems reviewed and are negative. Physical Exam ED Triage Vitals [05/04/22 0714] BP 154/79 Heart Rate 123 Resp (!) 40 Temp 98.1 F (36.7 C) Temp Source Oral SpO2 96 % Weight (!) 96 lb (43.5 kg) Height 5' 1 (1.549 m) BMI (Calculated) 18.15 Physical Exam Constitutional: Appearance: She is well-developed. HENT: Head: Normocephalic and atraumatic. Eyes: Conjunctiva/sclera: Conjunctivae normal. Pupils: Pupils are equal, round, and reactive to light. Cardiovascular: Rate and Rhythm: Normal rate and regular rhythm. Heart sounds: Normal heart sounds. Pulmonary: Effort: Pulmonary effort is normal. Tachypnea present. Breath sounds: Wheezing present. Abdominal: Palpations: Abdomen is soft. Tenderness: There is no abdominal tenderness. Musculoskeletal: General: Normal range of motion. Right shoulder: No deformity. Neurological: Mental Status: She is alert. GCS: GCS eye subscore is 4. GCS verbal subscore is 5. GCS motor subscore is 6. Psychiatric: Mood and Affect: Mood is anxious. Speech: Speech normal. Behavior: Behavior normal. ED Course Procedures Medical Decision Making Much improved with treatment and data reassuring COPD exacerbation Ipratropium added to regimen, repeat course of steroids Suggest close follow-up with established certified pesticide applicator DISCUSSED INDICATIONS FOR ED RETURN Helder Waters MD 05/04/22 0816 Pt reports cough, increasing shortness of breath x 1 week. Reports tried nebulizer this morning without relief. Denies fever. Transfers from wheelchair to bed with steady gait. Respirations labored. Non productive cough noted. Pulse ox 94% on room air. documented in this encounter [facility] 04-18-2022 Emergency department Note Discharge instructions reviewed with pt, pt verbalizes understanding and agreement. Patient in NAD with easy reg resps. Patient ambulates to lobby for discharge with no difficulty. ED Diagnosis and Summary 1. COPD exacerbation (HCC) 2. Tobacco abuse 3. Pneumonia due to infectious organism, unspecified laterality, unspecified part of lung 4. Tachypnea ED Summary History Chief Complaint Patient presents with Shortness of Breath Patient's medications and allergies were reviewed and updated as appropriate. Patient's medications, allergies, past medical, surgical, social and family histories were reviewed and updated as appropriate. The history is provided by the patient. 52 y.o. female presents to the emergency department by private automobile with a chief complaint of cough and worsening shortness of breath has been present for the past 2 weeks. Patient reports she does have a history of similar symptoms a history of asthma. Patient does endorse she is a daily cigarette smoker but has not been able to smoke cigarettes in the past 2 weeks. Denies additional associated symptoms. Reports pain rated 8/10. Aggravating factor include activity, denies alleviating factors. Reports treatment prior to arrival included multiple rounds of nebulizers with no significant improvement in symptoms. Patient denies trauma, injury, fall, fever, CP, rash, nausea, vomiting, diarrhea, change in bowel or bladder habits, back pain, flank pain, abdominal pain. Past Medical History: Diagnosis Date Arthritis Asthma Colon polyps 08/07/2015 Hyperplastic COPD (chronic obstructive pulmonary disease) (HCC) DDD (degenerative disc disease), lumbar Depression Fibromyalgia GERD (gastroesophageal reflux disease) Hepatitis C Hypertension Past Surgical History: Procedure Laterality Date COLONOSCOPY WITH BIOPSY, COLD N/A 08/07/2015 Brody Reilly MD COLONOSCOPY WITH POLYPECTOMY N/A 08/07/2015 Brody Reilly MD ESOPHAGOGASTRODUODENOSCOPY WITH BIOPSY N/A 08/07/2015 Brody Reilly MD HYSTERECTOMY 1996 LAMINECTOMY 2006 LUMBAR FUSION Review of Systems Constitutional: Negative for activity change, appetite change and fever. HENT: Negative for congestion and rhinorrhea. Eyes: Negative for discharge and redness. Respiratory: Positive for cough and shortness of breath. Cardiovascular: Negative for chest pain and palpitations. Gastrointestinal: Negative for abdominal distention, abdominal pain, diarrhea, nausea and vomiting. Endocrine: Negative for polydipsia and polyuria. Genitourinary: Negative for dysuria and flank pain. Musculoskeletal: Negative for arthralgias, back pain, gait problem, myalgias, neck pain and neck stiffness. Skin: Negative for color change, pallor, rash and wound. Neurological: Negative for weakness, numbness and headaches. Psychiatric/Behavioral: Negative for agitation and confusion. Physical Exam ED Triage Vitals [04/18/22 0936] BP (!) 186/106 Heart Rate 107 Resp 30 Temp 98.6 F (37 C) Temp Source Oral SpO2 100 % Weight (!) 96 lb (43.5 kg) Height 5' 1 (1.549 m) BMI (Calculated) 18.15 Physical Exam Vitals and nursing note reviewed. Constitutional: Appearance: She is well-developed. She is not ill-appearing, toxic-appearing or diaphoretic. HENT: Head: Normocephalic and atraumatic. Right Ear: External ear normal. Left Ear: External ear normal. Nose: Nose normal. No rhinorrhea. Mouth/Throat: Lips: [place]. No lesions. Mouth: Mucous membranes are moist. Eyes: Extraocular Movements: Extraocular movements intact. Conjunctiva/sclera: Conjunctivae normal. Pupils: Pupils are equal, round, and reactive to light. Neck: Trachea: No tracheal deviation. Cardiovascular: Rate and Rhythm: Regular rhythm. Tachycardia present. Heart sounds: Normal heart sounds. No murmur heard. Pulmonary: Effort: Tachypnea, accessory muscle usage and respiratory distress present. Breath sounds: Decreased breath sounds and rhonchi present. No wheezing. Comments: Patient respirations 38 to 40 breaths/min during my examination. Patient speaking in fragmented sentences. Chest: Chest wall: No tenderness. Abdominal: General: Bowel sounds are normal. There is no distension. Palpations: Abdomen is soft. Tenderness: There is no abdominal tenderness. There is no guarding or rebound. Musculoskeletal: General: No tenderness or deformity. Cervical back: Normal range of motion and neck supple. Skin: General: Skin is warm and dry. Capillary Refill: Capillary refill takes less than 2 seconds. Coloration: Skin is not pale. Findings: No erythema or rash. Neurological: General: No focal deficit present. Mental Status: She is alert, oriented to person, place, and time and easily aroused. Mental status is at baseline. She is not disoriented. GCS: GCS eye subscore is 4. GCS verbal subscore is 5. GCS motor subscore is 6. Cranial Nerves: No cranial nerve deficit. Sensory: No sensory deficit. Psychiatric: Behavior: Behavior normal. Behavior is cooperative. Thought Content: Thought content normal. Judgment: Judgment normal. ED Course ED Course as of 04/18/22 1045 [facility] Apr 18, 2022 1028 pCO2(!): 26.3 1028 pH(!): 7.541 1028 HCO3: 22.0 1028 White Blood Cells(!): 11.9 1030 Hgb(!): 16.5 1030 Hematocrit(!): 49.7 1030 Heart Rate: 106 1030 Heart Rate: 75 1030 SpO2: 99 % Procedures Medical Decision Making Number of Diagnoses or Management Options Amount and/or Complexity of Data Reviewed Clinical lab tests: reviewed and ordered Tests in the radiology section of CPT : ordered and reviewed Obtain history from someone other than the patient: no Discuss the patient with other providers: yes XR Chest 1 View Final Result Multifocal ground glass infiltrates in the right mid and upper lung dozier compatible with pneumonia. Labs Reviewed CBC WITH DIFFERENTIAL - Abnormal; Notable for the following components: Result Value White Blood Cells 11.9 (*) RBC 5.48 (*) Hgb 16.5 (*) Hematocrit 49.7 (*) Absolute Lymph 4.4 (*) Absolute Eosinophil 1.0 (*) All other components within normal limits COMPREHENSIVE METABOLIC PANEL - Abnormal; Notable for the following components: Potassium 3.4 (*) Glucose 110 (*) Alk Phos 131 (*) All other components within normal limits ABG (DRAW AND ANALYZE) - Abnormal; Notable for the following components: pH 7.541 (*) pCO2 26.3 (*) All other components within normal limits SARS-COV-2 RAPID MOLECULAR TEST INFLUENZA A&B MOLECULAR MAGNESIUM TROPONIN I GLOMERULAR FILTRATION RATE ED workup reveals no acute or surgical process. Patients allergies, history, and medication list were reviewed. Vital signs reviewed. Patient presentation and objective findings consistent with COPD exacerbation, tobacco abuse. Plan- Safe for discharge. Labs and imaging reviewed. Patient did receive Solu-Medrol and multiple rounds of duo nebs. Patient reports significant improvement in symptoms after ministration medications. Blood pressure has improved as well as heart rate has improved. Patient's respiratory rate has decreased from 38-40 down to the mid 20s. Patient reports has multiple nebulizers at home and does need refills-prescription provided. Plan to discharge patient home with prescription of prednisone burst and doxycycline to be picked up in the pharmacy and taken as prescribed. Patient encouraged to follow-up with PCP. Patients overall evaluation and work-up is reassuring for no acute process. Patient is nontoxic, afebrile, well hydrated, and overall well-appearing prior to discharge. Strict return precautions were provided for the patient to return to the emergency department or be evaluated by primary care provider for worsening or no improvement in symptoms or any other concerns and the patient/family verbalized understanding of this teaching. Disposition: Discharge Ddx considered during encounter (this list is not fully comprehensive): Asthma, sepsis, COPD exacerbation, pneumonia, pneumothorax, hemothorax, hypercapnia, metabolic syndrome This chart was written using voice recognition software and may contain spelling, syntax, and grammatical errors. Spoke with Dr. Springer regarding patient. Physician to complete their own physical exam and evaluation. Collaboration performed between this ARCHIVAL STUDIES PROFESSOR and physician regarding patient's plan of care. Milton Doty APRN CNP 04/18/22 1118 Pt reports shortness of breath and cough worsening for the last week. Reports hx of asthma, COPD and allergies. Shortness of breath worse this morning. Tried albuterol without relief. Respirations labored, tachy. Skin pink, warm, dry. Audible wheeze. documented in this encounter [facility] 02-04-2022 Emergency department Note ED Diagnosis and Summary 1. Acute cystitis with hematuria ED Summary History Chief Complaint Patient presents with Dysuria Patient's medications and allergies were reviewed and updated as appropriate. Patient's medications, allergies, past medical, surgical, social and family histories were reviewed and updated as appropriate. HPI Patient is a 51-year-old female who presents today due to concern for urinary tract infection. Patient that she has history of the same. States that symptoms began today. She has had dribbling, dysuria. She notes that it is different this time is that she has had persistent burning of her urethra. She denies any fever. She has had some nausea but no vomiting. Denies any abdominal pain. No other concerns. Review of Systems Constitutional: Negative. HENT: Negative. Eyes: Negative. Respiratory: Negative. Cardiovascular: Negative. Gastrointestinal: Positive for nausea. Negative for abdominal pain and vomiting. Genitourinary: Positive for difficulty urinating and dysuria. Negative for vaginal discharge. Musculoskeletal: Negative. Skin: Negative. Neurological: Negative. Physical Exam ED Triage Vitals [02/04/22 1851] BP 149/78 Heart Rate 90 Resp 16 Temp 98.2 F (36.8 C) Temp Source Oral SpO2 100 % Weight (!) 96 lb (43.5 kg) Height 5' 1 (1.549 m) BMI (Calculated) 18.15 Physical Exam Vitals and nursing note reviewed. Constitutional: General: She is not in acute distress. Appearance: Normal appearance. She is not ill-appearing, toxic-appearing or diaphoretic. HENT: Head: Normocephalic and atraumatic. Eyes: Extraocular Movements: Extraocular movements intact. Conjunctiva/sclera: Conjunctivae normal. Cardiovascular: Rate and Rhythm: Normal rate and regular rhythm. Heart sounds: No murmur heard. Pulmonary: Effort: Pulmonary effort is normal. No respiratory distress. Breath sounds: No stridor. No wheezing, rhonchi or rales. Abdominal: General: There is no distension. Palpations: Abdomen is soft. Tenderness: There is no abdominal tenderness. Musculoskeletal: General: Normal range of motion. Cervical back: Normal range of motion. Skin: General: Skin is warm and dry. Neurological: General: No focal deficit present. Mental Status: She is alert and oriented to person, place, and time. Psychiatric: Mood and Affect: Mood normal. Behavior: Behavior normal. Thought Content: Thought content normal. Judgment: Judgment normal. ED Course Procedures Medical Decision Making Patient is a 51-year-old female presents today with dysuria concerning for UTI. Patient was afebrile hemodynamically stable. Physical exam is unremarkable. Did obtain a urine dip which does appear consistent with UTI. We will plan to send for culture. Patient be started on Macrobid and was also given Pyridium and Zofran for symptoms. Patient felt safe for discharge. Cristina Esposito MD 02/04/221921 Physician at bedside. Pt reports burning and pressure with urination since this morning. Reports nausea with the pain. Denies back pain or fevers. Reports constant luis e area burning. Denies being red or itching. Denies vaginal discharge. Ambulates without difficulty. Respirations easy. Skin pink, warm, dry. documented in this encounter [facility] 07-27-2021 Emergency department Note ED Diagnosis and Summary 1. Acute bronchitis with COPD (HCC) 2. COPD with acute exacerbation (HCC) ED Summary History Chief Complaint Patient presents with Chest Congestion Shortness of Breath Patient's medications, allergies, past medical, surgical, social and family histories were reviewed and updated as appropriate. HPI This is a 51-year-old female smoker with a history of COPD, asthma, GERD, fibromyalgia, and hepatitis C who presents to the emergency department today complaining of cough and chest congestion. The patient reports that she became ill about 1 week ago. She is producing white sputum. She denies hemoptysis. She does report shortness of breath. It is worse with activity. She denies fever. No chest pain. No abdominal pain or vomiting. No diarrhea. No leg pain or swelling. No dizziness or syncope. She is not aware of any ill contacts. She denies a personal history of Covid. She has not been vaccinated for Covid. She has been trying her albuterol inhaler twice a day with mild improvement. She reports that her nebulizer is . Her symptoms are severe today. Review of Systems Constitutional: Negative for fever. HENT: Positive for congestion. Negative for sore throat. Respiratory: Positive for cough, shortness of breath and wheezing. Cardiovascular: Negative for chest pain and leg swelling. Gastrointestinal: Negative for abdominal pain, diarrhea, nausea and vomiting. Genitourinary: Negative for decreased urine volume and difficulty urinating. Musculoskeletal: Negative for gait problem. Skin: Negative for rash. Neurological: Negative for syncope and headaches. Psychiatric/Behavioral: Negative for confusion. Physical Exam ED Triage Vitals [07/27/21 1815] BP 147/82 Heart Rate 94 Resp 22 Temp 98 F (36.7 C) Temp Source Oral SpO2 98 % Weight 100 lb (45.4 kg) Height 5' 1 (1.549 m) BMI (Calculated) 18.9 Physical Exam Vitals and nursing note reviewed. Constitutional: General: She is not in acute distress. Appearance: She is well-developed. She is not diaphoretic. HENT: Head: Normocephalic and atraumatic. Eyes: General: No scleral icterus. Conjunctiva/sclera: Conjunctivae normal. Cardiovascular: Rate and Rhythm: Normal rate and regular rhythm. Pulses: Normal pulses. Heart sounds: Normal heart sounds. No murmur heard. Pulmonary: Effort: Pulmonary effort is normal. No respiratory distress. Breath sounds: Wheezing (diffuse) present. Comments: Normal RA pulse ox Abdominal: General: Bowel sounds are normal. Palpations: Abdomen is soft. Tenderness: There is no abdominal tenderness. Musculoskeletal: General: No tenderness (no calf tenderness). Cervical back: Neck supple. Right lower leg: No edema. Left lower leg: No edema. Skin: General: Skin is warm and dry. Capillary Refill: Capillary refill takes less than 2 seconds. Findings: No rash. Neurological: Mental Status: She is alert and oriented to person, place, and time. Comments: Moves all extremities, follows commands appropriately. Psychiatric: Behavior: Behavior normal. Behavior is cooperative. ED Course Procedures Medical Decision Making Number of Diagnoses or Management Options Amount and/or Complexity of Data Reviewed Clinical lab tests: ordered and reviewed Tests in the radiology section of CPT : ordered and reviewed Review and summarize past medical records: yes Independent visualization of images, tracings, or specimens: yes Patient Progress Patient progress: improved The patient is feeling better with treatment in the emergency department. She has a comfortable respiratory effort and normal room air pulse ox. Her work-up today is reassuring. Covid is negative. Chest x-ray is negative for acute process. Troponin is negative and EKG is negative for acute injury. Will initiate steroids and antibiotics for acute bronchitis and COPD exacerbation. The patient will continue her albuterol inhaler/nebulizer. She reports that her nebulizer is broken, so I have written a prescription for a new one. Safe for DC with supportive care and PCP follow-up. Discussed reasons to return to the ER sooner with patient who verbalizes understanding and is comfortable with the plan of care. Some or all of this note was created using voice recognition software. Efforts were made to proofread, but errors in grammar, syntax, punctuation as well as transcriptional errors may persist. Linda Younger MD 07/27/212008 X-ray at bedside. Patient with several day history of chest congestion and productive cough, white in color States that she has a history of asthma and allergies Patient becomes SOB with minimal exertion Skin is otherwise dry and intact Audible wheezing noted documented in this encounter [facility] 07-27-2021 Hospital Discharge instructions Linda Younger MD - 07/27/2021 Take medications as prescribed. Please use your albuterol nebulizer or albuterol inhaler 2 puffs every 4 hours while awake for the next 2-3 days, then every 4-6 hours as needed for cough, wheezing, and difficulty breathing. Please quit smoking. The following attachments cannot be sent through Care Everywhere.COPD: Exacerbation ([place] Indian)Bronchitis ([place] Indian)documented in this encounter [facility] 06-19-2021 History of Present illness Narrative IV removed, all belongings sent with patient, AVS and prescription handed to family member, no questions at this time, patient discharged Brief Ophthalmology Note POD0 s/p left upper eyelid and left eyebrow laceration repair -pt tolerated procedure well without complication -pt to ice the left eyelid and eyebrow as needed -pain per primary team -polysporin antibiotic ointment BID to left eye and to laceration/suture sites -[facility]. She can call [phone] to schedule an appointment. documented in this encounter [facility] 06-19-2021 Hospital course Narrative Images from the original note were not included. [place] [facility] SURGERY TRAUMA DISCHARGE SUMMARY MECHANISM OF INJURY: Fall LOC (yes/no?): No Anticoagulant / Anti-platelet Rx? (for what dx?): No INJURIES: 1. Left supraorbital scalp and eyelid laceration SURGERIES/PROCEDURES: Date Operation/Procedure Provider Name 06/19/21 1. Left upper lid full thickness margin laceration repair 2. Left eyebrow laceration repair, stephanie Kam ACTIVE MEDICAL PROBLEMS: 1. COPD/asthma 2. HTN 3. Hyperlipidemia 4. Alcoholism INCIDENTAL FINDINGS: 1. Facet arthropathy C3/4 with anterolisthesis 2. Multilevel cervical degenerative disc disease 3. Emphysema DISCHARGE PLANNIN. Home today 2. Trauma F/U 3. Ophtho F/U TODAY'S ASSESSMENT AND PLAN OF CARE: 1. Left eyelid lacerations: OR today with optho for repair. Vision intact. F/U in 1 week. 2. COPD: No sign of exacerbation. Stable on RA. 3. ETOH abuse: Patient endorses daily vodka drinking, 2-3 cups per day. Denies history of withdrawal. Denies current symptoms. States she has not experienced symptoms when she abstains from drinking for a few days. Discussed dangers of stopping drinking abruptly, as well as danger of drinking with concurrent concussion. She verbalizes understanding as well as her daughter who is at bedside. 4. Concussion: Evaluated by SPRAY MACHINE TENDER, recommend 5-7. Notes that patient was quite drowsy during eval and progression expected with subsequent sessions. Tonight patient is awake and alert. She lives with her daughter who agrees that she will provide direct supervision at home. Patient does not drive at baseline. She will not be responsible for any minors. She will not be home by herself. Referral provided for OP speech therapy. 5. HTN: no home meds, BP controlled. Discharge to home Outpatient PT/OT/ST: Referral for ST Inpatient Consults: Procedures Inpatient consult to Trauma Surgery Inpatient consult to Ophthalmology Hospitalize Patient To:____ Inpatient Procedures: No admission procedures for hospital encounter. Allergies Reviewed: Gabapentin and Tramadol Discharge Medications: Medication List START taking these medications acetaminophen 325 MG tablet Commonly known as: TYLENOL Take 2 (two) tablets (650 mg total) by mouth every 4 (four) hours as needed . bacitracin-polymyxin b 500-10,000 unit/gram ophthalmic ointment Commonly known as: POLYSPORIN Administer into the left eye every 12 (twelve) hours Apply to left eye and to wounds twice daily . ibuprofen 400 MG tablet Commonly known as: ADVIL,MOTRIN Take 1 (one) tablet (400 mg total) by mouth every 6 (six) hours as needed . CONTINUE taking these medications * albuterol 2.5 mg /3 mL (0.083 %) nebulizer solution Commonly known as: PROVENTIL * albuterol 90 mcg/actuation inhaler atorvastatin 40 MG tablet Commonly known as: LIPITOR cetirizine 10 MG tablet Commonly known as: ZYRTEC Dosoquin 5,500-200 unit-mcg Tab Generic drug: vitamin D3-vitamin K2 PARoxetine 10 MG tablet Commonly known as: PAXIL * This list has 2 medication(s) that are the same as other medications prescribed for you. Read the directions carefully, and ask your doctor or other care provider to review them with you. Where to Get Your Medications These medications were sent to [address] [facility] [address] [place] [id number] bacitracin-polymyxin b 500-10,000 unit/gram ophthalmic ointment Information about where to get these medications is not yet available Ask your nurse or doctor about these medications acetaminophen 325 MG tablet ibuprofen 400 MG tablet Diet: Regular Follow-up Appointments / Plans: Blessing Kam MD [address] [facility] [address] [address] Follow up Please call for a follow up appointment in 1 week [facility] [address] [facility] [address] [address] Follow up Please call to arrange follow up Time spent on discharge: > 30 minutes CHIEF COMPLAINT/ HPI / PFSHx / EVENTS OVER LAST 24HRS: Patient seen post-operatively. Doing well. Eating a snack. She would like to go home. Daughter is at bedside and confirms she lives with patient and will provide supervision. Pain controlled. Vision intact. REVIEW OF SYSTEMS: Other than the above items the remainder of the complete ROS is otherwise unchanged from admission. PHYSICAL EXAM: Temp: [97.6 F (36.4 C)-98.7 F (37.1 C)] 98 F (36.7 C) Heart Rate: [72-92] 74 Resp: [14-22] 15 BP: (113-193)/(68-101) 113/70 GENERAL: Appears age appropriate. No acute distress. NEUROLOGICAL: Alert and oriented X 3. Cranial nerves II-XII intact grossly. GCS 15. Follows commands with extremities x4, equal strength. Pupils equal, round, reactive to light. EOMI. No focal neurologic deficits noted. HEAD/FACE: Normocephalic. Left periorbital edema/ecchymosis. Lacerations well-approximated with sutures. EYES/EARS/NOSE/MOUTH/THROAT: Conjunctivae/sclerae/corneas clear. Ears: External ear normal. Hearing within normal limits for patient. No drainage. Nose: nares normal, no drainage. Neck: supple, symmetrical, trachea midline. CARDIOVASCULAR: Regular rate and rhythm. No peripheral edema noted. 2+ pulses radial/DP/PT bilaterally. RESPIRATORY: Respiratory effort unlabored without use of accessory muscles. ABDOMINAL: Rounded, soft, nontender, nondistended No guarding or peritoneal signs. GENITOURINARY: Voiding without difficulty. No dysuria or retention. No gross hematuria. MUSCULOSKELETAL: Extremities atraumatic without gross deformity x4. ROM appropriate for age. No clubbing, cyanosis or joint edema. SKIN: Skin warm and dry. Normal turgor. No rashes or lesions. Intake/Output Summary (Last 24 hours) at 06/19/2021 191 Last data filed at 06/19/2021 1531 Gross per 24 hour Intake 50 ml Output 2 ml Net 48 ml documented in this encounter [facility] 06-19-2021 Miscellaneous Notes Brief Post Operative Note Patient Name: Tracey Betancourt : 1970 (51 y.o.) Date of Service: 06/19/2021 CSN: [id number] Procedure(s): LEFT UPPER EYELID AND EYEBROW LACERATION REPAIR Pre-Operative Diagnoses: * left upper eyelid laceration; left eyebrow laceration Post-Operative Diagnoses: * Same as Pre-Op Diagnosis Surgeon(s) and Role: * Blessing Kam MD - Primary Anesthesiologist: Darnell Banda DO TITLE CURATOR: Jillian Bass CRNA; Polina Rosario CRNA Vibrator Equipment Tester: Edilma Randle RN Scrub Person: ST Baldev; ST Gwyn Vibrator Equipment Tester Orientee: America Fleming RN Scrub Person Orientee: Kristy Obando RN Operative findings: left upper lid lac, left eyebrow lac Intra and immediate post-operative complications: none Type of anesthesia used: General Estimated blood loss: 2 mL Estimated urine output: 0 mL Specimen(s): * No specimens in log * Implant(s): * No implants in log * Drain(s): * No LDAs found * Wound(s): * No LDAs found * Blessing Kam MD 06/19/2021 3:26 PM OPERATIVE REPORT Patient Name: Tracey Betancourt Admit Date: [id number] MR #: [id number] : 1970 06/19/2021 SURGEON: BLESSING KAM MD. PREOPERATIVE DIAGNOSIS: 1. Left upper lid full thickness margin involving laceration 2. Left eyebrow laceration POSTOPERATIVE DIAGNOSIS: 1. Left upper lid full thickness margin involving laceration 2. Left eyebrow laceration PROCEDURES: 1. Left upper lid full thickness margin laceration repair 2. Left eyebrow laceration repair, complex COMPLICATIONS: NONE. ANESTHESIA: GENERAL WITH LOCAL INFILTRATION ESTIMATED BLOOD LOSS: <5ML INDICATIONS: Tracey Betancourt is a 51 y.o. female who sustained eyelid and eyebrow lacerations to the left side after fall trauma. After evaluation by our ophthalmology department, the risks, benefits, alternatives, complications were discussed with the patient regarding repair of the left eyelid and left eyebrow lacerations. The patient stated they understood and wished to proceed. At this time an informed consent was obtained. DESCRIPTION OF PROCEDURE: Both the patient and operative sites were positively identified and marked pre-operatively. The patient was brought to the operating room and then prepped and draped in the normal sterile ophthalmic fashion. General anesthesia was supplied by the anesthesia department. Attention was directed to the left brow. A laceration approx 2.5 cm was encountered and explored. There were no foreign bodies. The wound extended down to the orbital rim but the orbit did not appear violated. The wound was irrigated with a mix of bacitracin and saline. The deep layers were closed with buried 5-0 vicryl and the skin with 6-0 plain gut. Attention was then directed to the left upper lid a curvilinear full thickness laceration was seen through the central upper lid margin. 6-0 vicryl suture was used to reapproximate the eyelid margin with slight eversion. Partial thickness sutures were placed along the body of the tarsus superior to the margin to bring the tarsus back together. 6-0 plain gut was used to reapproximate the lash line. The skin was closed with 6-0 plain gut, tying the margin sutures up into one of the knots to keep the tails out away from the eye. The eyelid was everted to ensure that no sutures were full thickness. Local anesthetic consisting of 2% lidocaine, 1:100,000 Epinephrine mixed with 50/50 with 0.75% Marcaine was then injected into the patients left eyebrow and left eyelid area. Polysporin ophthalmic ointment was placed over the incisions and in the left eye. The patient tolerated the procedure well and was taken to the recovery area in stable condition. The patient was given specific instructions as to wound care and follow up, and to call with any questions or concerns. [place] PROGRESS NOTE MECHANISM OF INJURY: Fall From Standing LOC (yes/no?): No Anticoagulant / Anti-platelet Rx? No Reason/Dx: n/a INJURIES: 1. Left supra orbital scalp and eyelid laceration SURGERIES/PROCEDURES: Date Operation/Procedure Provider Name ACTIVE MEDICAL PROBLEMS: 1. COPD/asthma 2. HTN 3. Hyperlipidemia 4. Alcoholism INCIDENTAL FINDINGS: 1. Facet arthropathy C3/4 with anterolisthesis 2. Multilevel cervical degenerative disc disease 3. Emphysema DISCHARGE PLANNIN. Trauma 2. Optho TODAY'S ASSESSMENT AND PLAN OF CARE: 1. Left eyelid lacerations: OR today with optho for repair, no issues with eye. 2. COPD: no exacerbation, on room air, no intervention. 3. ETOH abuse: 1/2 gallon vodka per day, has not withdrawn in the past however does not remember the last time she was not drinking. PHB taper in place, no withdrawal at this time. 4. HTN: no home meds, BP controlled. 5. HCG indeterminate: unclear why, no need for re-check as patient has hx of hysterctomy. She is not . 6. Dispo: pending OR today and therapies post op. DISPOSITION - Floor CHIEF COMPLAINT/ HPI / PFSHx / EVENTS OVER LAST 24HRS: No new issues, to OR with optho today REVIEW OF SYSTEMS: Other than the above items the remainder of the complete ROS is otherwise unchanged from admission. PHYSICAL EXAM: Temp: [97.6 F (36.4 C)-98.7 F (37.1 C)] 97.6 F (36.4 C) Heart Rate: [72-92] 73 Resp: [14-22] 16 BP: (121-193)/(80-101) 121/80 GENERAL: Appears age appropriate. No acute distress. NEUROLOGICAL: Alert and oriented X 3. GCS 15. Follows commands with extremities x4, equal strength. Pupils equal, round, reactive to light. EOMI. No focal neurologic deficits noted. HEAD/FACE: Normocephalic, atraumatic. EYES/EARS/NOSE/MOUTH/THROAT: EOMI, trachea midline, vision at baseline CARDIOVASCULAR: Regular rate and rhythm. No clicks, rubs, murmurs or gallops noted. No peripheral edema noted. pvc monitor displays sinus rhythm. 2+ pulses radial/DP/PT bilaterally. RESPIRATORY: Lungs, clear to auscultation bilaterally. No rhonchi, wheezes or crackles. Respiratory effort unlabored without use of accessory muscles. ABDOMINAL: Rounded, soft, non-tender, non-distended, normal bowel sounds. No guarding or peritoneal signs. GENITOURINARY: Voiding without difficulty. No dysuria or retention. No gross hematuria. MUSCULOSKELETAL: Extremities atraumatic without gross deformity x4. ROM appropriate for age. No clubbing, cyanosis or joint edema. SKIN: Skin warm and dry. Normal turgor. No rashes or lesions. WOUNDS/INCISIONS: left eyelid laceration x's 2 No intake or output data in the 24 hours ending 06/19/21 1115 IMAGING [briefly note any results pertinent to today's evaluation]: Reviewed DAILY CHECKLIST: Patient seen in room 548/A *Need for Restraints: na *Need for Urinary Catheter: na *Need for Central Access Devices: na *VTE Prophylaxis (Body mass index is 20.41 kg/m ., Estimated Creatinine Clearance: 62 mL/min (by C-G formula based on SCr of 0.81 mg/dL).): lovenox on hold for eye surgery can start tonight Restricted Alcohol/Drug Screening Date: 06/19/2021 Time: 10:10 AM This Note contains information protected by federal regulations (42 CFR Part 2) that require even greater restrictions than the rules for other medical records. The Part 2 regulations even restrict how this information may be shared within [facility]. Accordingly, this information should NOT be viewed except by caregivers when needed for the limited purpose of diagnosing, treating or making a referral in relation to alcohol/drug abuse or by caregivers when needed to treat the patient in a medical emergency. The Part 2 regulations also have special rules regarding disclosure of this information. To ensure compliance with these rules, this Note should NOT be printed and released under any circumstance, unless released with valid authorization by the Health Information Management (HIM) Department. Patient Name: Tracey Betancourt Date of : 1970 Sex: Female Admit Date/Time: 06/18/2021 9:31 PM Reason for Intervention: Daily alcohol use indicated in medical record. Pattern of Alcohol & Drug Use Screening, Brief Intervention, Referral and Treatment (SBIRT) intervention due to daily alcohol use, level of impairment and general effects to health in relation to hospitalization and aftercare. Patient stated she drinks 1/2 gallon of vodka per day. She appears to minimize her use by adding I mix it with pop, so its not that much . Discussed withdrawal symptoms and encouraged patient to report any symptoms to medical team. She denied current or past withdrawal symptoms. She has been to alcohol treatment in the past but none in over 1 year. She is not interested in treatment at this time. She denied illicit drug use. Patient reports the following pattern of alcohol and/or drug use over the past year: Alcohol: daily, 1/2 gallon of vodka a day Cannabis: none Cocaine:none Methamphetamine:none Opiates:none Benzodiazepine:none Barbiturates:none Methadone:none Other:none UNCOPE Screening Tool The following question are based on the past year of alcohol and/drug use: Have you ever drank or Used drugs more than you meant to? yes Have you ever Neglected some of your usual responsibilities due to alcohol/drug use? no Have you wanted or needed to Cut Down on your drinking or drug use in the last year? no Has anyone Objected to your drinking or drug use? yes Have you ever found yourself Preoccupied with wanting to use alcohol or drugs? no Have you ever used alcohol or drugs to relieve Emotional Discomfort (sadness, anger, boredom, anxiousness, etc? no Screening results: 12/23 indicates need for education, advice, counseling with referral for further evaluation. Stage of Change appears to be pre-contemplation. Provided psychoeducation, counseling and resources in the following areas: NIAAA drinking guidelines for women with strategies/tips to cut down on drinking Prevention of binge drinking to avoid future alcohol-related injuries Basic education related to prescription drug abuse prevention. Discussed safety measures when taking potentially prescribed opiate medications related to current injury, informed pt of the dangers in mixing alcohol and/or illegal drugs with such medications in order to prevent harmful side effects. Negative effects of alcohol and/or illegal substances on general health Provided patient with Recovery from Trauma packet, including PTSD education and safe use of pain medications handouts. Encouraged patient to abstain from alcohol and illicit drugs during recovery from injuries process to prevent re-injury and reduce harmful effects from medications prescribed to treat injuries. Patient should be monitored for alcohol withdrawal. Provided patient with alcohol treatment resources and offered to assist her in making calls, patient declined. PTSD -5 Screening Tool Sometimes things happen to people that are usually or especially frightening, horrible, or traumatic (serious accident, assault of any kind, nature disaster, war, a loved one by homicide or suicide) Have you ever experience this kind of event(s)? no In the past month have you experience any of the following: Had nightmares about the event(s) or thought about the event(s) when you did not want to? no Tried hard not to think about the event(s) or went out of your way to avoid situations that reminded you of the event(s)? no Been constantly on guard, watchful, or easily startled? no Jeffrey numb or detached from people, activities, or your surroundings? no Jeffrey guilty or unable to stop blaming yourself or others for the event(s) or any problems the event(s) may have caused? no Screening results: 0/5, Patient denies history of traumatic events negatively affecting her the past month. Patient indicates mental health diagnosis and/or prescribed medications. Provided prevention and education on coping with stress and potential PTSD symptoms related to injury. If needed, the patient can contact the [facility] at [phone]. Support System: Patient reports having stable housing, health insurance and transportation. Patient identified family and friends as support system. Patient will have a ride home at discharge. Resources: Recovery From Trauma packet, alcohol/other drug educational handouts. Electronically Signed By: RAE Bains, [facility] Contact by name on Vocera or [phone] (this clinicians office) or [phone] (administrative office) Pre-operative Patient Readiness Date: 06/19/21 9:31 AM Admission:06/18/2021 Operative Intervention: LEFT UPPER EYELID AND EYEBROW LACERATION REPAIR (Left ) Mechanism: Fall from standing Negative rapid @ [facility]; however, is not acceptable test for OR. Will need repeated with more definitve test. Ordered 06/19 COVID Negative [] Positive [] Date: Labs: Type and screen Expires: None [x] Ordered/pending [] Chem: Results from last 7 days Lab Units 06/19/21 0506 SODIUM mmol/L 138 POTASSIUM mmol/L 4.3 CHLORIDE mmol/L 105 BUN mg/dL 7* CREATININE mg/dL 0.81 GLUCOSE mg/dL 115* CALCIUM mg/dL 9.2 CBC: Results from last 7 days Lab Units 06/19/21 0506 WBC K/mcL 9.73 HGB g/dL 14.4 HCT % 43.5 PLT K/mcL 336 HCG Indeterminate 06/18, reordered 06/19 HCG Date: 06/18 Indeterminate Positive [] Negative [] Postmenopausal/Hysterectomy [] VS: SBP 130-190's. On RA Traumatic Injuries: 1. L supra orbital scalp and eyelid laceration Current Surgical Hx None Active medical problems: 1. COPD/asthma 2. HTN 3. Hyperlipidemia 4. Alcoholism 1. Phenobarb taper Incidental Findings: 1. Facet arthropathy C3/4 with anterolisthesis 2. Multilevel cervical degenerative disc disease 3. Emphysema PMH: COPD/asthma, hyperlipidemia, HTN, alcoholism, smoker Neuro: No concerns Cardio: Present EKG: [x] Date: 06/19 Ordered [] None [] NSR[x] With short ME RVR [] PVC's[] PAC's[] LBBB[] RBBB [] PJC [] 1st Degree AVB [] Mobits I [] Mobits II [] Complete HB [] Present ECHO: [] Date: Ordered [] None [x] Impression: EF Pertinent Meds: None Respiratory: O2 Source: Room Air [x] NC [] Liters: Oxymizer [] Liters: NRB [] Liters: Venti [] Liters: FiO2 HFNC [] Liters: FiO2: Trach Mask/T-Piece [] Liters: FiO2: Trach w/ Vent [] (see above settings) Intubated [] (see above settings) CXR Done [x] None [] Date: 06/18 Impression: No acute cardiopulmonary disease CT Chest Done [] None [x] Date: Impression: Additional Testing: None [x] Date: Gastroenterology: Daily EtOH use Phenobarb taper Antibiotics: None AntiCoags: None CTLS Clearance: Cervical spine is clear. Cervical collar is off. TLS-Spines are clear. Primary Team Clearance note: Not completed Pending Testing: HCG, COVID Additional Information: None Consenting Green Party: Patient Contacts: Crispin Alanis Mobile Relation: Significant Other Radha Noble CNP 06/19/2021 Transfer Center Advanced Practice Provider Trauma Transfer Note Demographic/Patient Information: Patient Name: Tracey Betancourt Age/Sex: 51 y.o., female : 1970 COVID 19 SCREENING: Prior to Transfer the following screening has been completed. Before coming to the hospital, the patient has not had symptoms of an upper respiratory illness (no symptoms) The patient has the following risk factors for exposure to COVID-19: none Chest imaging not obtained show evidence of bilateral peripheral opacities. The patient's current oxygen requirement is room air MECHANISM OF INJURY: Fall LOC: Unknown Anticoagulant / Anti-platelet Rx: No use of AC/AP meds per report If yes, list time of reversal agents provided prior to transfer: NA Open Fracture Coverage: N/A INJURIES: Complex right eyelid laceration OTHER MEDICAL PROBLEMS: Alcohol use Zgqzxfyv-hg-Muwilgqo communication has occurred between the on-call [facility] and the following referring provider: REFERRING PROVIDER CONTACT INFORMATION: Provider: Dr. Mejia Department: ED Referring Facility: [facility] The patient will be accepted by the trauma attending/team at the following facility: ACCEPTING PHYSICIAN CONTACT INFORMATION: Accepting Facility: [facility] Destination: ED If planned direction admission, recommended level of care: N/A Does Patient meet Level One Trauma Activation Criteria?: No HPI (Events over past 24 hours): 51yo female who tripped then either struck her head on a doorknob or concrete--unsure which. Found to have a complex right eyelid laceration. Unable to fully assess EOMs due to patient cooperation secondary to pain. Patient is a known drinker. (+) EtOh, alcohol level 198. PHYSICAL EXAM (Pertinent positive findings): Complex right eyelid laceration IMAGING: CT Head: Negative CT Cervical Spine: Negative [facility] Discussion with Referring Provider: All outside images and reports have been requested to be sent. Other Transfer Notes: Vitals: BP 193/101, HR 66, RR 22, Temp 98.7F, SpO2 100% on RA Recommendations made by TCAPP: None If you have any questions about this referral note, you may contact the Trauma [facility] at . Liset Hawkins PA-C 11:14 PM 06/18/21 documented in this encounter [facility] 06-19-2021 Hospital Discharge instructions Gema Saldaña, [place] - 06/19/2021 INJURIES: 1. Left supraorbital scalp and eyelid laceration SURGERIES/PROCEDURES: Date Operation/Procedure Provider Name 06/19/21 1. Left upper lid full thickness margin laceration repair 2. Left eyebrow laceration repair, complex Kam INCIDENTAL FINDINGS: 1. Facet arthropathy C3/4 with anterolisthesis 2. Multilevel cervical degenerative disc disease 3. Emphysema During your hospitalization it was noted you have the incidental finding(s) listed above. An incidental finding is a disease or condition, found during your hospitalization, that is unrelated to your present injury or illness. You will need to follow up with your family / primary care provider for monitoring and further testing. TRAUMA CARE QUESTIONS / FOLLOW UP CARE A Trauma follow-up appointment should be scheduled for you before you are discharged from the hospital. If not, please contact the office at your earliest convenience to schedule your follow up appointment. Bring your medication list and/or pill bottles with you to your first visit. Telehealth Appointments: In an effort to provide alternate follow up services to all trauma patients, the trauma clinic has made Telehealth available. This is a telephone visit where the patient can speak with a provider over the phone instead of an in-person visit. If appropriate, our office may reach out to you prior to your scheduled appointment to discuss changing to a Telehealth visit. Not all patients are appropriate for telehealth, based on your injuries and follow-up needs. If you have caprice/stitches, wounds or drains you may be asked to come in for an in-person visit. Outpatient Trauma and Acute Care Surgery Office: [address] 1[address] Floor, [address] [place] [id number] Hours: Friday-Friday, 8am to 4pm. If you need to speak with the trauma/surgery team after hours, please call and ask to speak with the Trauma Advanced Practice Provider documentation writer. Parking: You may park in the [facility] [address], which is attached to the office building. Take the elevators to the 1st floor. The office is in [address]. You may also enter from the [facility] entrance. Walk through both sets of glass doors; the trauma office is on the right, [address], under the stairs. Use this entrance if you are arriving by ambulance or wheelchair van. Garage parking is free with a voucher, which you will receive at your appointment. PRIMARY CARE PHYSICIAN FOLLOW UP Call and schedule a post Trauma follow up appointment with your primary care provider. If you need assistance with obtaining a primary care physician please call: [phone] MANAGING YOUR PAIN AT HOME Pain is your body's way of warning you that something is wrong. Pain feels different for everybody. Only you can describe your pain. A provider can suggest or prescribe many types of medicines for pain. These range from nonprescription medicines like acetaminophen (Tylenol) to powerful medicines called opiates. Opiates work well to relieve pain, but they also can cause problems, especially if they are taken too often or in too large a dose. They can interact with other medicines, or they may make it hard for you to do your job or to think clearly. They can even cause . For these reasons, providers are very careful about how they prescribe opiates. It has been carefully considered what pain medicine is right for you. You may not have received opiate pain medicine if there are concerns about drug interactions or your safety. It is best to have one prescriber (doctor/provider) or clinic treat your pain. This way you will get the pain medicine that will help you the most, and monitoring for any problems that the medicine might cause. Follow-up care is a marques part of your treatment and safety. Be sure to make and go to all appointments, and call the number provided if you are having problems. It's also a good idea to know your test results and keep a list of your medicines. How can you care for yourself at home? Try other ways to reduce pain: Relax, and reduce stress. Relaxation techniques such as deep breathing or meditation can help. Keep moving. Gentle, daily exercise can help reduce pain over the long run. Try low- or no-impact exercises such as walking, swimming, and stationary biking. Do stretches to stay flexible. Try heat, cold packs, and massage. Get enough sleep. Pain can make you tired and drain your energy. Talk with your doctor if you have trouble sleeping because of pain. Think positive. Your thoughts can affect your pain level. Do things that you enjoy to distract yourself when you have pain instead of focusing on the pain. See a movie, read a book, listen to music, or spend time with a friend. Prescription Pain Medications: The prescription provided should be enough to get you through until your follow up appointment with the Outpatient Trauma office or specialty service. DO NOT take more than prescribed. Refills on opiate pain medications can only be filled in person. Over time, you should be able to take less medications as your injuries heal. Take an over the counter stool softener daily with the pain medicine to prevent the development of constipation. Also drink plenty of water and eat foods high in fiber. If you are not taking a prescription pain medicine, take an bcyw-tfo-lzgvhft medicine as directed such as Tylenol (Acetaminophen) or Motrin (Ibuprofen). When should you call for help? Call your doctor now or seek immediate medical care if: You have a new kind of pain. You have new symptoms, such as a fever or rash, along with the pain. You think you might be using too much pain medicine. You need help to use less or stop taking pain medicine. Your pain gets worse. You would like a referral to a doctor or clinic that specializes in pain management. RETURN TO WORK You may return to work as follows: [ ] Immediately upon hospital discharge- No work restrictions [ ] When no longer requiring opiate pain medications [XX ] We will discuss returning to work at your Outpatient Trauma office appointment [ ] When you follow up with your specialist, they will tell you when you may return to work LACERATIONS You have sustained a cut to your skin. It has been repaired with sutures. Wound Care: -You may apply ice to the left eyelid and eyebrow as needed -Apply polysporin antibiotic ointment twice daily to left eye and to laceration/suture sites -[facility] 1 week. You can call [phone] to schedule an appointment. o You may shower. Do NOT take a tub bath, swim or get in a hot tub. o Before and after caring for your wound wash your hands with soap and warm water. o Gently clean the wound 1-2 times a day with cool water. Use mild soap to clean around the wound but try not to get any soap on the wound edges. o Do NOT use alcohol or hydrogen peroxide to clean your wound o Do NOT put any ointments, lotions or powder on the wound unless you are told to do so by your doctor? Monitor the site for infection and call the Outpatient Trauma office if you develop: o You have signs of infection, such as increased pain, swelling, warmth, or redness around the wound. o Red streaks leading from the wound. o Pus draining from the wound. o A fever greater than 101 degrees. CONCUSSION Your trauma or accident has caused a sudden shock or jarring to your brain, with or without a loss of consciousness ( passing out ). You may be having one or more of these post concussive symptoms (PCS): Headache, blurred and/or double vision Problems sleeping, fatigue, and/or irritability Dizziness and/or feeling nauseous Poor coordination or loss of balance Memory, concentration, and/or organization problems We recommend you have a responsible person with you at all times for the first 2-3 days after discharge from the hospital, following a concussion. Most people recover fully from a concussion but occasionally PCS can last up to 3 months or longer. Follow up with your family doctor, trauma office and/or speech therapist while these symptoms continue. Call [phone] if these symptoms become life threatening. OUTPATIENT THERAPY We recommend that you continue with SPEECH THERAPY on an outpatient basis. You have been given a prescription for it. You may follow up with a facility of your choice. If you choose to follow up with an [facility] call to schedule an appointment. The following attachments cannot be sent through Care Everywhere.Alcohol Detoxification and Withdrawal (Indian)Alcohol Use Disorder: General Info (Indian)Alcohol Withdrawal: General Info (Indian)documented in this encounter [facility] 06-19-2021 Consult note Speech Pathology Concussion/TBI Eval Note Auditory Comprehension Severity rating: Requires further assessment Expressive Language Severity rating: WFL Motor Speech Severity rating: WFL Cognition Severity ratin-75% (Moderate), 25-50% (Severe) Factors for returning to Prior Level of Function: Factors for Returning to Prior Level of Function Body Structure and Function: Neurologic impairment Explain Impairments: + LOC Activities and Participation: Executive function limitation Explain Limitations: reduced orientation, attention and processing. Additiona evaluation warranted. Environmental Factors: Home situation, Family/caregiver support, Transportation Explain Environmental Factors: Lives w/ daughter. Does not drive. Personal Factors: Awareness of own capacity and performance Explain Personal Factors: Suspect reduced insight Skilled therapy needs: Skilled Therapy Needs: Are Skilled Therapy Services Needed After Discharge: Yes Intensity of Skilled Therapy: 5 to 7 days per week (Hopeful progression w/ improved alertness.) Anticipated Duration of Skilled Therapy: Duration 7 - 10 days Prior function: Prior Function Reason for Referral: Concussion Primary Language: Indian Employment Status: Disabled Living Situation: With others, Independent with ADL's, Manages own medications, Manages own finances, Does not drive, Cooking, Cleaning Prior Speech Deficit: No known previous deficits, Per chart review, Per patient report Prior Language Deficit: No known previous deficits, Per chart review, Per patient report Prior Cognitive Deficit: No known previous deficits, Per chart review, Per patient report Baseline Assessment Subjective Impression: Alert, Cooperative, Lethargic, Somnolent Respiratory Status: Nasal cannula Auditory Comprehension: Auditory Comp Impression-Severity Scale: Requires further assessment Expressive Language: Expressive Language Impression-Severity: WFL Cognitive-Communication: Speech Cognition Impression-Severity: 50-75% (Moderate), 25-50% (Severe) Orientation Level: Oriented to person, Oriented to situation, Oriented to time, Oriented to place, With choices, With cues (cues / choices for time and location) Attention: Exceptions to WFL Memory: Unable to assess Verbal Problem Solving: Unable to assess Safety/Judgement: Within Functional Limits Insight: Decreased awareness of impairment Pragmatics: Flat affect, Decreased eye contact Recommended general cognitive strategies: Limit background environmental noise, Use of external visual aids (lists, notes, etc), Logical cues, Gain and re-gain attention, Allow for increased response time, Repeat questions/requests, Provide visual and gestural cues, Clear/concise statements, Use organizational strategies Concussion/TBI: Patient endorses: Fatigue or low energy, Drowsiness (Note:Pt current denies additional symptoms, however symptoms) Patient O-Log (Orientation Log) Score - Cut off score 25 or better on two separate administrations: Orientation-Log Orientation-log: Yes City: [address]: 3 Name of Hospital: 1 Month: 2 Date: 1 Year: 1 Day of Week: 2 Clock Time: 3 Etiology / Event: 3 Pathology Deficits: 2 Orientation Log Total Score (out of 30): 21 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 Repeat Orientation-Log: Yes Patient Cog-Log (Cognitive Log) Score - Cut off score 25 or better: Cognitive-Log Cognitive-log: No Variance - Cognitive Log: Unable to complete test due to endurance limitations Speech Plan: Further acute Speech Therapy services indicated: Yes Role of ST Discussed: With patient Risk/Benefits of ST Discussed: With patient Patient Goal for Treatment: None stated Rehab Potential: Good Further Recommendations: Further eval for higher level cognition Past Medical History: Diagnosis Date Asthma COPD (chronic obstructive pulmonary disease) (HCC) Past Surgical History: Procedure Laterality Date BACK SURGERY HYSTERECTOMY ORTHOPEDIC SURGERY L arm Speech Pathology Concussion/TBI Treatment Note Total Treatment Time (Total Session Time): 12 Minutes Concussion/mTBI education: Concussion/mTBI education completed with patient; handout provided. Discussed possible concussion/mTBI symptoms, their potential interference with IADLs, the possibility of delayed onset of symptoms with an increase in patient activity, and management strategies; including rationale for a transitional approach to gradual increases in length, level and complexity of activities and/or responsibilities. Patient verbalized appropriate understanding of ST education and recommendations. Patient was able to independently state. 0 possible concussion/mTBI symptoms to monitor for during recovery period, 0 strategy/strategies to utilize to manage symptoms, and what to do if concerns arise/persist. Additional education warranted. Skilled Interventions and Response to Interventions: Cognitive-Communication: Skilled Intervention/treatment: Max verbal cues, Patient education/training Patient Response to Intervention: Unable to provide return demonstration Skilled intervention/treatment - Attention: Max verbal cues, Patient education/training Patient Response to Intervention - Attention: Unable to provide return demonstration For complete objective data, detailed plan of care, and education refer to: Speech Comm/Cog Eval flow sheet, as well as patient Plan of Care and Education documentation. This note stands as the current Discharge Summary upon patient discharge from the hospital or completion of Speech Pathology Plan of Care Associated Order(s): IP CONSULT TO OPHTHALMOLOGY OPHTHALMOLOGY CONSULT NOTE Patient Name: Tracey Betancourt Admit Date: [id number] MR #: [id number] : 1970 Physicians: Gin Banerjee CNP (Family); Merlyn Mejia DO (Referring) Chief Complaint/Reason for Visit: Tracey Betancourt is a 51 y.o. y/o female with Fall and Alcohol Intoxication Pt with a fall yesterday and left eye trauma. Reports left eye pain, blurry vision. Denies past eye history. Assessment and Plan: # Left upper lid laceration, margin involving -to be repaired in operating room, likely today -discussed with patient the r/b/a of surgery including pain, bleeding, infection, repeat surgery, damage to eye/vision. Pt agrees to proceed -please keep pt NPO # Left brow laceration -to be repaired in operating room # Left eye trauma -no signs of ruptured globe on imaging or exam -no fractures or retrobulbar hemorrhage on imaging -exam somewhat limited by pain and cooperation Review of Systems: The following system(s) were reviewed and pertinent findings noted: Eyes History: Past Medical History: Diagnosis Date Asthma COPD (chronic obstructive pulmonary disease) (HCC) Past Surgical History: Procedure Laterality Date BACK SURGERY HYSTERECTOMY ORTHOPEDIC SURGERY L arm History reviewed. No pertinent family history. Social History Socioeconomic History Marital status: Single Spouse name: Not on file Number of children: Not on file Years of education: Not on file Highest education level: Not on file Occupational History Not on file Tobacco Use Smoking status: Current Every Day Smoker Packs/day: 0.50 Years: 40.00 Pack years: 20.00 Types: Cigarettes Smokeless tobacco: Never Used Vaping Use Vaping Use: Never used Substance and Sexual Activity Alcohol use: Yes Drug use: Not Currently Sexual activity: Not on file Other Topics Concern Not on file Social History Narrative Not on file Social Determinants of Health Financial Resource Strain: Difficulty of Paying Living Expenses: Food Insecurity: Worried About Running Out of Food in the Last Year: Ran Out of Food in the Last Year: Transportation Needs: Lack of Transportation (Medical): Lack of Transportation (Non-Medical): Physical Activity: Days of Exercise per Week: Minutes of Exercise per Session: Stress: Feeling of Stress : Social Connections: Frequency of Communication with Friends and Family: Frequency of Social Gatherings with Friends and Family: Attends Nondenominational Services: Active Member of Clubs or Organizations: Attends Club or Organization Meetings: Marital Status: Allergy Information: I have reviewed the patient's allergies. Gabapentin and Tramadol Home Medications: Outpatient Medications as of 06/19/2021 Medication Sig atorvastatin (LIPITOR) 40 MG tablet Take 40 mg by mouth daily . PARoxetine (PAXIL) 10 MG tablet Take 10 mg by mouth daily . Current Hospital Medications: Scheduled Meds: atorvastatin 40 mg Oral Nightly oxyCODONE 10 mg Sublingual Once PARoxetine 10 mg Oral Daily PHENobarbitaL 64.8 mg Oral Q12H Followed by [START ON 06/20/2021] PHENobarbitaL 32.4 mg Oral Q12H Followed by [START ON 06/22/2021] PHENobarbitaL 32.4 mg Oral Q24H [START ON 06/20/2021] senna-docusate 1 tablet Oral Nightly Continuous Infusions: sodium chloride 0.9 % PRN Meds:.acetaminophen, albuterol, cyclobenzaprine, ibuprofen, nalOXone AND Notify physician AND naloxone, ondansetron OR ondansetron, oxyCODONE, PHENobarbital, [COMPLETED] Insert peripheral IV AND Saline lock IV AND sodium chloride (PF) AND sodium chloride 0.9 % Vitals range in last 24 hours: Temp: [97.6 F (36.4 C)-98.7 F (37.1 C)] 97.6 F (36.4 C) Heart Rate: [72-92] 73 Resp: [14-22] 16 BP: (121-193)/(80-101) 121/80 Ophthalmic Examination: Base Eye Exam Visual Acuity Limited due to pain and cooperation Tonometry (Palpation, 8:27 AM) Right Left Pressure s s Pupils Pupils Right PERRL Left PERRL Visual Dozier Limited due to pain and coopertion Extraocular Movement Right Left Full Full Slit Lamp and Fundus Exam External Exam Right Left External Normal laceration at inferior margin of left brow with underlying orbic and fat visible Slit Lamp Exam Right Left Lids/Lashes Normal upper lid edema and ecchymosis, vertical laceration central upper lid extending inferiorly through the lid margin Conjunctiva/Sclera White and quiet RAGHAV Cornea Clear Clear Anterior Chamber Deep and quiet Deep and quiet Iris Round and reactive Round and reactive Lens Clear Clear Labs, Imaging, and Studies: Recent Results (from the past 36 hour(s)) BMP Collection Time: 06/18/21 9:59 PM Result Value Ref Range Sodium 140 135 - 145 mmol/L Potassium 4.0 3.5 - 5.1 mmol/L Chloride 106 98 - 108 mmol/L Bicarbonate 20 (L) 21 - 32 mmol/L Anion Gap 18 10 - 20 mmol/L Glucose 103 (H) 65 - 99 mg/dL BUN 5 (L) 8 - 25 mg/dL Creatinine 0.84 0.40 - 1.10 mg/dL eGFR 81 >=60 mL/min/1.73 m2 BUN/Creatinine Ratio 6.0 (L) 10.0 - 20.0 Calcium 9.2 8.4 - 10.2 mg/dL Alcohol, Medical Collection Time: 06/18/21 9:59 PM Result Value Ref Range Alcohol (Medical) 126.0 (H) <10.0 mg/dL CBC Auto Differential Collection Time: 06/18/21 9:59 PM Result Value Ref Range WBC 10.76 4.50 - 11.00 K/mcL RBC 4.91 4.00 - 5.20 M/mcL Hemoglobin 15.1 12.0 - 16.0 g/dL Hematocrit 44.3 36.0 - 46.0 % MCV 90.2 80.0 - 100.0 fL MCH 30.8 26.0 - 34.0 pg MCHC 34.1 31.0 - 37.0 g/dL Platelets 372 150 - 400 K/mcL RDW - CV 12.3 11.6 - 14.8 % MPV 8.9 (L) 9.4 - 12.4 fL Neutrophils 54.3 % Lymphocytes 36.6 % Monocytes 3.8 % Eosinophils 4.6 % Basophils 0.4 % IG Percent 0.30 % Neutrophils Abs 5.84 1.70 - 7.00 K/mcL Lymphocytes Abs 3.94 0.90 - 4.00 K/mcL Monocytes Abs 0.41 0.30 - 0.90 K/mcL Eosinophils Abs 0.50 0.00 - 0.50 K/mcL Basophils Abs 0.04 0.00 - 0.30 K/mcL IG Absolute 0.03 0.00 - 0.30 K/mcL Nucleated RBC 0.0 % Nucleated RBC Abs 0.00 0.00 - 0.00 K/mcL HCG (QUALITATIVE) Collection Time: 06/18/21 9:59 PM Result Value Ref Range Beta-hCG Qual Indeterminate (A) Negative CBC Collection Time: 06/19/21 5:06 AM Result Value Ref Range WBC 9.73 4.50 - 11.00 K/mcL RBC 4.75 4.00 - 5.20 M/mcL Hemoglobin 14.4 12.0 - 16.0 g/dL Hematocrit 43.5 36.0 - 46.0 % MCV 91.6 80.0 - 100.0 fL MCH 30.3 26.0 - 34.0 pg MCHC 33.1 31.0 - 37.0 g/dL Platelets 336 150 - 400 K/mcL RDW - CV 12.4 11.6 - 14.8 % MPV 9.1 (L) 9.4 - 12.4 fL Nucleated RBC 0.0 % Nucleated RBC Abs 0.00 0.00 - 0.00 K/mcL Basic Metabolic Panel Collection Time: 06/19/21 5:06 AM Result Value Ref Range Sodium 138 135 - 145 mmol/L Potassium 4.3 3.5 - 5.1 mmol/L Chloride 105 98 - 108 mmol/L Bicarbonate 21 21 - 32 mmol/L Anion Gap 16 10 - 20 mmol/L Glucose 115 (H) 65 - 99 mg/dL BUN 7 (L) 8 - 25 mg/dL Creatinine 0.81 0.40 - 1.10 mg/dL eGFR 84 >=60 mL/min/1.73 m2 BUN/Creatinine Ratio 8.6 (L) 10.0 - 20.0 Calcium 9.2 8.4 - 10.2 mg/dL Results from last 7 days Lab Units 06/19/21 0506 06/18/21 2159 SODIUM mmol/L 138 140 POTASSIUM mmol/L 4.3 4.0 CHLORIDE mmol/L 105 106 BUN mg/dL 7* 5* CREATININE mg/dL 0.81 0.84 GLUCOSE mg/dL 115* 103* CALCIUM mg/dL 9.2 9.2 Results from last 7 days Lab Units 06/19/21 0506 06/18/21 2159 WBC K/mcL 9.73 10.76 HGB g/dL 14.4 15.1 HCT % 43.5 44.3 PLT K/mcL 336 372 Invalid input(s): LABALBU Invalid input(s): CKMBINDEX No results found for: HGBA1C XR Chest 1 View Result Date: 06/18/2021 EXAMINATION: ONE XRAY VIEW OF THE CHEST 06/18/2021 9:52 pm COMPARISON: None. HISTORY: ORDERING SYSTEM PROVIDED HISTORY: fall; TECHNOLOGIST PROVIDED HISTORY: Illness/Other Acuity: Acute Reason for Exam: fall Cancer History: Surgery, Radiation History: Type of Encounter: Initial Additional signs and symptoms: fall FINDINGS: No lines or tubes. Normal cardiomediastinal silhouette. The lungs are clear without focal consolidation or pleural effusion. No suspicious pulmonary nodules. No pulmonary edema. No pneumothorax. No acute osseous abnormality. No acute cardiopulmonary disease. Workstation ID: [id number] CT Comparison Import Result Date: 06/18/2021 This order has been auto-finalized and does not contain a result. documented in this encounter [facility] 06-18-2021 History and physical note [place] TRA[facility] TRAUMA EVALUATION / HISTORY AND PHYSICAL / CONSULT NOTE MECHANISM OF INJURY: Fall From Standing LOC (yes/no?): No Anticoagulant / Anti-platelet Rx? No Reason/Dx: n/a INJURIES: 1. L supra orbital scalp and eyelid laceration SURGERIES/PROCEDURES: Date Operation/Procedure Provider Name ACTIVE MEDICAL PROBLEMS: 1. COPD/asthma 2. HTN 3. Hyperlipidemia 4. Alcoholism INCIDENTAL FINDINGS: 1. Facet arthropathy C3/4 with anterolisthesis 2. Multilevel cervical degenerative disc disease 3. Emphysema ADMISSION PLAN OF CARE: 1. Med surg with tele 2. Complex L eye lid laceration 1. Ophtho consulted given eyelid laceration 3. Closed head injury 1. Coag eval 4. History of alcoholism 1. Phenobarb taper started 5. Spine clearance status: - Cervical spine is clear. Cervical collar is off. - TLS-Spines are clear. 6. Need for Restraints: no. 7. Consultants notified (list specialty/name/time): Ophthamology, 06/18 @ 6525, Dr. Pimentel Disposition: Admit to the Floor This patient is being seen by the Trauma Service either in the ED, ICU, TICU, or Floor (GMCTRAUMA) CHIEF COMPLAINT: Fall, eyelid laceration Trauma Category: Consult HISTORY OF PRESENT ILLNESS / INJURY (HPI): [include Pain, Quality, Radiation, Severity, Timing] 51 Yo female with history of daily alcohol use presented to the ED at an OSH for evaluation after a fall. Patient transferred here for complex laceration involving the eyelid. Patient reports that she had a mechanical trip and fall over concrete this afternoon. Patient fell forward and struck her head. Patient denies LOC. Patient does not use any blood thinners. Patient reports left sided facial pain. Patient denies any other complaints. Patient denies neck pain, back pain, chest pain, dyspnea, or abdominal pain. Patient reports that she drinks half a gallon of vodka daily. Patient denies withdrawal symptoms when she has not had alcohol for a day and denies any history of seizures. PAST MEDICAL HISTORY (PMH): Medical history: COPD/asthma, hyperlipidemia, HTN, alcoholism -LMP (females only): No LMP recorded. -Last tetanus: Up to date Surgical history: Hysterectomy, back surgery, L arm surgery Social history: -Place of residence (home, SNF, etc): Home -Tobacco use: 0.5 PPD -EtOH use: Daily -Illicit drug use: Denies Family history: No bleeding disorders. MEDICATIONS: Outpatient Medications as of 06/18/2021 Medication Sig atorvastatin (LIPITOR) 40 MG tablet Take 40 mg by mouth daily . cholecalciferol, vitamin D3, 50 mcg (2,000 unit) cap Take 2,000 Units by mouth daily . loratadine 10 mg cap Take 10 mg by mouth daily . PARoxetine (PAXIL) 10 MG tablet Take 10 mg by mouth daily . ALLERGIES: Allergies Allergen Reactions Gabapentin Diarrhea Tramadol GI Intolerance REVIEW OF SYSTEMS: [List positives and pertinent negatives] Constitutional Symptoms: Denies fever Eyes: Denies blurred vision Ears, Nose, Mouth, Throat: Reports left sided facial pain Cardiovascular: Denies chest pain Respiratory: Denies dyspnea Gastrointestinal: Denies abdominal pain Genitourinary: Musculoskeletal: Denies neck pain, back pain Skin/Breast: Neurological: Reports headache, dizziness Psychiatric: Endocrine: Hematologic/Lymphatic: Allergic/Immunologic: Other than the above items, the remainder of a complete review of systems is otherwise negative. [must have at least one positive or negative to validate this statement] PHYSICAL EXAM: VS: [DO NOT LEAVE BLANK] Temp: 98.7 F HR: 66 BP: 193/101 RR: 22 SpO2: 100 % PRIMARY SURVEY Airway Patent, trachea midline. Phonation is normal. Breathing Symmetric chest rise and fall. Breath sounds present bilaterally. Circulation Pulses 2+ throughout. Disability Moves extremities normally x 4. No lateralizing neurologic signs. Pupils 3 mm equal and reactive bilaterally. [place] Coma Scale EYES (4-spont, 3-to verb stim, 2-to pain, 1-none) 4 VERBAL (5-oriented, 4-confused, 3-inappropriate, 2-incomprehensible, 1-none) 5 MOTOR (6-follows, 5-localizes, 4-withdraws, 3-flexion, 2-extension, 1-none) 6 GCS: 15 SECONDARY SURVEY General Appears age appropriate. In no acute distress, complaining of left sided facial pain HEENT Head normocephalic, PERRL, EOMI, small left subconjunctival hemorrhage, mid face stable, left periorbital ecchymosis and tenderness to palpation, laceration present to left eyelid extending into the lash margin and the left eyebrow, tympanic membranes intact, no subconjunctival hemorrhage, nares patent bilaterally, no epistaxis, mouth clear of foreign bodies, no lacerations or abrasions. Neck No midline tenderness to palpation, no step offs, crepitus, or deformities. Chest/Respiratory Rales present bilaterally, but air movement. Breathing is non-labored. Chest wall without tenderness to palpation, crepitus, deformities, lacerations, or abrasions. Cardiovascular RRR. No murmur, rub, gallop. Abdomen Soft, nontender to palpation, non-peritoneal. No lacerations, abrasions or ecchymosis. Pelvis Stable, no crepitance. Non-tender. Rectal Deferred Deferred Back/Spine TLS spine non-tender to palpation. No step-offs, deformities, lacerations or abrasions. Musculoskeletal Extremities without clubbing, cyanosis, edema. No obvious bony deformity, full ROM. Skin Warm and dry. No lesions of concern. Not jaundiced. No abrasions/contusions. Neurologic A&Ox3. Strength, sensation, proprioception normal. No cerebellar signs. Psychiatric Normal mood. Normal affect. Appropriate insight into current situation. Other FAST Exam: Pericardial: Not Performed RUQ: Not Performed LUQ: Not Performed Pelvic: Not Performed EFAST (PTX): Not Performed FAST Completed by: [providers First, Last Name] n/a IMAGING STUDIES: [brief summary of results, in your own words] CXR: Negative Pelvis Xray: Did not perform CT Head: Negative CT C-Spine: Negative CT T&L-Spine: Did not perform CTA Neck: Did not perform CTA Chest/Abd/Pelvis: Did not perform CT Maxillofacial: Did not perform Other: Did not perform LABORATORY STUDIES: Results from trauma bay labs were reviewed. Pertinent findings may be listed below, no dot phrases. Alcohol: 126 Urine : Indeterminate, but patient with report of hysterectomy TRAUMA [place]AY / ED PROCEDURES: [requires separate procedure note/dication] Procedure Performed Provider Location/Site/Description Suture closure of laceration: No Chest Tube: No Intubation: No CVC: No Arterial catheter: No Diagnostic Peritoneal Aspiration: No GMCTRAUMA Associated attestation - Martell Kennedy MD - 06/19/2021 10:01 AM EDT TRAUMA, ACUTE CARE, AND CRITICAL CARE SURGERY STAFF PHYSICIAN NOTE Please see the attached resident/JOE progress note NOTE OF PERSONAL INVOLVEMENT IN CARE: I have personally seen and examined this patient and participated in the marques components of this encounter on the date of service listed on the note below. I have reviewed the relevant radiology images and interpretations available to and agree with such unless noted below. I have reviewed outside medical records available to me if present. I discussed the management of this case with the Resident/Advanced Practice Provider and independently confirmed the findings and plan of care as documented either attached or in their separate note from today. Any necessary corrections or additions are noted. Patient was seen and examined by, the attending trauma surgeon at 2315. 51F w/ h/o of alcoholism presents as a trauma transfer after sustaining a mechanical fall. Transferred here due to a complex eyelid laceration. No LOC. Has left sided periorbital ecchymosis in addition to the complex laceration. CTH/Cspine negative. CTH captured most of the face thus a CT face was not done. Will consult optho and admit to the floor. Martell Kennedy MD MS Trauma, Acute Care, and Critical Care Surgery documented in this encounter [facility] 06-18-2021 Emergency department Note Images from the original note were not included. ED PROVIDER NOTE [facility] NAME: Traecy Betancourt AGE: 51 y.o. : 1970 VISIT DATE: 06/18/2021 CSN: [id number] PCP: Gin Banerjee CNP Chief Complaint Patient presents with Fall Alcohol Intoxication This is a well-appearing 51-year-old female smoker with history of COPD daily alcohol use takes cholesterol and blood pressure medicine denies any blood thinners presents as a transfer for complex left eyelid laceration. Patient reports this afternoon she tripped and fell struck her face possibly on the wall versus concrete. She does not think she lost conscious she denies any chest pain or shortness of breath before she fell. Outside hospital update her tetanus is CT scan of her head and neck that was reportedly negative. She was sent here for trauma evaluation and for the laceration. Denies any pain other than her face and her head. No vomiting. She says she drinks a half a gallon of vodka every day. Says when she goes a day without drinking she does not get withdrawal symptoms denies a history of alcoholism. No injuries to her arms or legs. Nothing makes the pain head better or worse. History provided by: Patient Fall Associated symptoms include headaches. Pertinent negatives include no fever, no numbness and no abdominal pain. Alcohol Intoxication Associated symptoms: headaches Associated symptoms: no abdominal pain, no confusion, no palpitations, no shortness of breath and no weakness Past Medical History: Diagnosis Date Asthma COPD (chronic obstructive pulmonary disease) ([facility]) Past Surgical History: Procedure Laterality Date BACK SURGERY HYSTERECTOMY ORTHOPEDIC SURGERY L arm History reviewed. No pertinent family history. Social History Socioeconomic History Marital status: Single Spouse name: Not on file Number of children: Not on file Years of education: Not on file Highest education level: Not on file Occupational History Not on file Tobacco Use Smoking status: Current Every Day Smoker Packs/day: 0.50 Years: 40.00 Pack years: 20.00 Types: Cigarettes Smokeless tobacco: Never Used Vaping Use Vaping Use: Never used Substance and Sexual Activity Alcohol use: Yes Drug use: Not Currently Sexual activity: Not on file Other Topics Concern Not on file Social History Narrative Not on file Social Determinants of Health Financial Resource Strain: Difficulty of Paying Living Expenses: Food Insecurity: Worried About Running Out of Food in the Last Year: Ran Out of Food in the Last Year: Transportation Needs: Lack of Transportation (Medical): Lack of Transportation (Non-Medical): Physical Activity: Days of Exercise per Week: Minutes of Exercise per Session: Stress: Feeling of Stress : Social Connections: Frequency of Communication with Friends and Family: Frequency of Social Gatherings with Friends and Family: Attends Nondenominational Services: Active Member of Clubs or Organizations: Attends Club or Organization Meetings: Marital Status: Previous Medications Medication Sig atorvastatin (LIPITOR) 40 MG tablet Take 40 mg by mouth daily . cholecalciferol, vitamin D3, 50 mcg (2,000 unit) cap Take 2,000 Units by mouth daily . loratadine 10 mg cap Take 10 mg by mouth daily . PARoxetine (PAXIL) 10 MG tablet Take 10 mg by mouth daily . Allergies Allergen Reactions Gabapentin Diarrhea Tramadol GI Intolerance Review of Systems Constitutional: Negative for activity change, appetite change, fever and unexpected weight change. HENT: Negative for congestion and dental problem. Eyes: Negative for pain and redness. Respiratory: Negative for cough, chest tightness and shortness of breath. Cardiovascular: Negative for chest pain and palpitations. Gastrointestinal: Negative for abdominal pain and blood in stool. Endocrine: Negative for polydipsia and polyuria. Genitourinary: Negative for dysuria and flank pain. Musculoskeletal: Negative for arthralgias and back pain. Skin: Positive for wound. Negative for color change and rash. Neurological: Positive for dizziness and headaches. Negative for syncope, weakness and numbness. Psychiatric/Behavioral: Negative for confusion. The patient is not nervous/anxious. All other systems reviewed and are negative. Patient Vitals for the past 24 hrs: BP Temp Pulse Resp SpO2 Height Weight 06/18/21 2212 139/89 90 16 95 % 06/18/21 2133 (!) 173/94 98.1 F (36.7 C) 75 18 100 % 5' 1 49 kg (108 lb) Physical Exam Vitals and nursing note reviewed. Constitutional: Appearance: She is well-developed. HENT: Head: Normocephalic. Abrasion, contusion, left periorbital erythema and laceration present. Eyes: General: No scleral icterus. Conjunctiva/sclera: Left eye: Hemorrhage present. Pupils: Pupils are equal, round, and reactive to light. Comments: Pupils equal react small subconjunctival hemorrhage complex laceration with abrasion contusion on the left eyelid fresh blood no active bleeding Cardiovascular: Rate and Rhythm: Normal rate and regular rhythm. Heart sounds: Normal heart sounds. No murmur heard. No friction rub. No gallop. Pulmonary: Effort: Pulmonary effort is normal. No respiratory distress. Breath sounds: Rales present. No wheezing. Comments: Diffuse Rales okay air movement Chest: Chest wall: No tenderness. Abdominal: General: There is no distension. Palpations: Abdomen is soft. Tenderness: There is no abdominal tenderness. There is no guarding. Musculoskeletal: General: No tenderness. Normal range of motion. Right shoulder: Normal. Left shoulder: Normal. Right elbow: Normal. Left elbow: Normal. Right wrist: Normal. Left wrist: Normal. Cervical back: Normal range of motion and neck supple. Right hip: Normal. Left hip: Normal. Right knee: Normal. Left knee: Normal. Right ankle: Normal. Left ankle: Normal. Skin: General: Skin is warm and dry. Capillary Refill: Capillary refill takes less than 2 seconds. Coloration: Skin is not jaundiced or pale. Findings: No bruising, erythema, lesion or rash. Neurological: General: No focal deficit present. Mental Status: She is alert and oriented to person, place, and time. Cranial Nerves: No cranial nerve deficit. Coordination: Coordination normal. Psychiatric: Mood and Affect: Mood normal. Behavior: Behavior normal. Laboratory & Radiographic Imaging (if done): Results for orders placed or performed during the hospital encounter of 06/18/21 BMP Result Value Ref Range Sodium 140 135 - 145 mmol/L Potassium 4.0 3.5 - 5.1 mmol/L Chloride 106 98 - 108 mmol/L Bicarbonate 20 (L) 21 - 32 mmol/L Anion Gap 18 10 - 20 mmol/L Glucose 103 (H) 65 - 99 mg/dL BUN 5 (L) 8 - 25 mg/dL Creatinine 0.84 0.40 - 1.10 mg/dL eGFR 81 >=60 mL/min/1.73 m2 BUN/Creatinine Ratio 6.0 (L) 10.0 - 20.0 Calcium 9.2 8.4 - 10.2 mg/dL Alcohol, Medical Result Value Ref Range Alcohol (Medical) 126.0 (H) <10.0 mg/dL HCG (QUALITATIVE) Result Value Ref Range Beta-hCG Qual Indeterminate (A) Negative CBC Auto Differential Result Value Ref Range WBC 10.76 4.50 - 11.00 K/mcL RBC 4.91 4.00 - 5.20 M/mcL Hemoglobin 15.1 12.0 - 16.0 g/dL Hematocrit 44.3 36.0 - 46.0 % MCV 90.2 80.0 - 100.0 fL MCH 30.8 26.0 - 34.0 pg MCHC 34.1 31.0 - 37.0 g/dL Platelets 372 150 - 400 K/mcL RDW - CV 12.3 11.6 - 14.8 % MPV 8.9 (L) 9.4 - 12.4 fL Neutrophils 54.3 % Lymphocytes 36.6 % Monocytes 3.8 % Eosinophils 4.6 % Basophils 0.4 % IG Percent 0.30 % Neutrophils Abs 5.84 1.70 - 7.00 K/mcL Lymphocytes Abs 3.94 0.90 - 4.00 K/mcL Monocytes Abs 0.41 0.30 - 0.90 K/mcL Eosinophils Abs 0.50 0.00 - 0.50 K/mcL Basophils Abs 0.04 0.00 - 0.30 K/mcL IG Absolute 0.03 0.00 - 0.30 K/mcL Nucleated RBC 0.0 % Nucleated RBC Abs 0.00 0.00 - 0.00 K/mcL XR Chest 1 View Final Result No acute cardiopulmonary disease. Workstation ID: [id number] CT Comparison Import Final Result Procedures MDM Number of Diagnoses or Management Options Alcoholic intoxication without complication (HCC) Concussion without loss of consciousness, initial encounter Fall, initial encounter Left eyelid laceration, initial encounter Diagnosis management comments: 51-year-old female presents as a trauma transfer from outside hospital. This afternoon patient reports she tripped and fell striking her head and face. Outside hospital they update her tetanus is a CAT scan of the head and face and neck that did not show any skull fracture head bleed. She has a complex laceration to her left eyelid so she was sent here for trauma evaluation. She did have elevated blood alcohol. She admits to daily drinking. She denies withdrawal symptoms or history of alcoholism. Blood alcohol level still elevated her lungs sound coarse but she said she felt fine before she fell. Trauma evaluate her and be admitting her to the hospital. Smoking cessation counseling in 5 minutes. Her test was indeterminant but she is had a hysterectomy no chance of . The patient has been informed that they may have pre-hypertension or hypertension based on a blood pressure reading in the Emergency Department. I recommend that the patient call the primary care provider listed on their discharge instructions or a physician of their choice as soon as possible to arrange follow-up in the next 4 weeks for further evaluation of possible pre-hypertension or hypertension. . Clinical Impression: 1. Fall, initial encounter 2. Alcoholic intoxication without complication (HCC) 3. Concussion without loss of consciousness, initial encounter 4. Left eyelid laceration, initial encounter ED Disposition ED Disposition Condition Comment Hospitalize Recommended Level of Care: Med Surg Phone call required?: No Follow-up Information Follow-up information has not been specified. Contact information for after-discharge care Follow-up information has not been specified. Helder De La Torre MD 06/18/212250 Bed: 33 Expected date: Expected time: Means of arrival: Comments: 29 Transfer note Pt presented to [facility] with report of a fall and striking her head on a door frame or the concrete. Unknown LOC. Pt is intoxicated. Pt has a complex left eye laceration to the eye lid. Pt is NOT on blood thinners. Physical assess otherwise unremarkable. CT Head and neck reported 'negative'. ETOH 198. 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 Pt GCS 14 Bed: 29 Expected date: Expected time: Means of arrival: Comments: [facility] 204. Transfer. ETOH/Fall. Je documented [facility] this encounter [facility] Acute bronchitis with COPD (HCC)- Primary Obstructive chronic bronchitis with acute bronchitis COPD with acute exacerbation (HCC) Obstructive chronic bronchitis with exacerbation [facility] Acute cystitis with hematuria- Primary Acute cystitis [facility] Diagnosis COPD exacerbation (HCC)- Primary Obstructive chronic bronchitis with exacerbation Tobacco abuse Tobacco use disorder Pneumonia due to infectious organism, unspecified laterality, unspecified part of lung Tachypnea Lab test negative for COVID-19 virus [facility] Diagnosis COPD exacerbation (HCC)- Primary Obstructive chronic bronchitis with exacerbation [facility] Diagnosis COPD exacerbation (HCC)- Primary Obstructive chronic bronchitis with exacerbation [facility] Diagnosis Acute bronchitis with bronchospasm- Primary Acute bronchitis Rib contusion, left, initial encounter Smoker Tobacco use disorder [facility]* Attachments The following attachments cannot be sent through Care Everywhere. * UTI (Urinary Tract Infection): [facility] ([place]) [facility]* Instructions* Milton Doty APRN CNP - 04/18/2022 Continue to use inhalers at home for symptom management * Attachments The following attachments cannot be sent through Care Everywhere. * Smoking Cessation: Health Benefits: General Info ([place]) * COPD: Asthma ([place]) * COPD: Exacerbation ([place]) * Pneumonia ([place]) * doxycycline (oral/injection) ([place]) [facility]* Instructions* Helder Waters MD - 05/04/2022 Use your nebulizer 4 times daily for the next 5 days Contact your lung specialist as soon as possible Stop smoking * Attachments The following attachments cannot be sent through Care Everywhere. * COPD: Exacerbation ([place]) [facility]* Attachments The following attachments cannot be sent through Care Everywhere. * COPD: Exacerbation ([place]) [facility] (narrative)* Consultation (Routine) - Open Specialty Diagnoses / Procedures Referred By Kecia t Referred To Contact Pulmonary Disease / Pulmonology Diagnoses COPD exacerbation (HCC) Naa Paulino APRN CNP [address] [place] [address] [facility] [address] [place] [address] [address] [place] [address] Referral ID Status Reason Start Date Expiration Date Visits Re quested Visits Authorized [id number] Open 07/17/2022 08/16/2023 1 1 [facility] Summary Purpose Family History No Family History Records FoundNo Family History Records FoundNo Family History Records FoundNo Family History Records FoundNo Family History Records FoundNo Family History Records FoundNo Family History Records FoundNo Family History Records Found Advance Directives No Advanced Directives Records FoundDocuments on File Type Date Recorded Patient Jewelry Bench Molder Expl anation Advance Directives and Livin g Will 01/19/2020 11:57 PM Latest Code Status on File Code Status Date Activated Date Inactivated Comments Full Code 01/20/2020 1:00 AM Documents on File Type Date Recorded Patient Jewelry Bench Molder Expl anation Advance Directives and Living Will Advance Directives and Living Will 08/07/2015 1:36 PM 08/07/15- NO AD Power of Economics Faculty Member Latest Code Status on File Code Status Date Activated Date Inactivated Comments Full Code 08/07/2015 10:13 AM 08/07/2015 9:12 PM Documents on File Type Date Recorded Patient Jewelry Bench Molder Expl anation Advance Directives and Living Will Advance Directives and Living Will 08/07/2015 1:36 PM 08/07/15- NO AD Power of Economics Faculty Member Latest Code Status on File Code Status Date Activated Date Inactivated Comments Full Code 08/07/2015 10:13 AM 08/07/2015 9:12 PM Documents on File Type Date Recorded Patient Jewelry Bench Molder Expl anation Advance Directives and Livin g Will 06/18/2021 10:07 PM Latest Code Status on File Code Status Date Activated Date Inactivated Comments Full Code 06/18/2021 10:37 PM 06/19/2021 9:46 PM Full Code 01/20/2020 1:00 AM 06/18/2021 9:31 PM Documents on File Type Date Recorded Patient Jewelry Bench Molder Expl anation Advance Directives and Living Will Power of Economics Faculty Member Advance Directives and Living Will 08/07/2015 1:36 PM 08/07/15- NO AD Documents on File Type Date Recorded Patient Jewelry Bench Molder Expl anation Advance Directives and Living Will Power of Economics Faculty Member DNR Documentation Advance Directives and Living Will 08/07/2015 1:36 PM 08/07/15- NO AD Documents on File Type Date Recorded Patient Jewelry Bench Molder Expl anation Advance Directives and Living Will Power of Economics Faculty Member DNR Documentation Hospital Course Note CLINICAL SUMMARY Please take this summary document to your follow up appointments. [place] 01/20/19 09:28 [address] [place]. [address] PATIENT INFORMATION Name: TRACEY BETANCOURT [address]: [address] [place] [id number] Age: 48 Years Phone: [phone] : 1970 12:00 [id number] Sex: Female Race: White Ethnicity: Not Hispan/Lat Admitted From: Clinic or [facility] Medical Service: Neurological Surgery Nurse Unit/Bed: (UT) 3T 0352-01 Admit Date: 01/18/2019 04:58 PCP: Physician, PCP Unknown PHYSICIANS INVOLVED WITH CARE Attending Physicians: Paresh Reevse MD - Neurological Surgery Admitting Physician: Paresh Reeves MD - Neurological Surgery Primary Care Physician:Physician, PCP Unknown,Family Practice,,, - Consults: None found DIAGNOSES: Lumbar spinal stenosis Problems Active Evi (more content not included)... Note Patient: TRACEY BETANCOURT [id number] Age: 48 years Sex: Female : 1970 Associated Diagnoses: None Author: Dulce Sommer Supervising Physician Comments Documentation By: Physician Pattern Hand. Discharge Information Hospital Discharge Planning Discharge planning: the patient has been referred to case management. Discharge Summary Information Final diagnosis(es) Lumbar spinal stenosis ([id number] M48.061, Discharge, Medical) Admitted 01/18/2019. Discharged 01/20/2019. Hospital course: Pt presented for elective lumbar surgery by Dr. Reeves for lumbar stenosis, surgery was without complication. Two epidural HV drains were placed and discontinued on POD2. Pt developed symtpomatic acute postoperative blood loss anemia and was transfused 2 units PRBC on POD1, repeat hgb wnl and all symptoms resolved without reoccurance. Pt had a preoperative brown placed which was discontinued on POD1 without difficulty. Pt discharged to home on pOD2 to follow up in office (more content not included)... Note DICTATED BY:ZHANG COHEN DO SERVICE DATE:01/19/2019 POSTOPERATIVE MEDICAL MANAGEMENT CONSULTATION She is postop day #1 from a lumbar decompression with fusion and fixation. HISTORY OF PRESENT ILLNESS: I have a 48-year-old female with history of lumbar spinal stenosis and chronic back pain, failed conservative outpatient medical management, electively decided to proceed with a lumbar decompression. She is postop day #1 and appears generally well. She is profoundly hypotensive with a hemoglobin of 7.1. She is not tachycardic; however, she is profoundly hypotensive. Currently, is receiving 1 unit of packed red blood cells and that will be expanded to 2 units of packed red blood cells and that she is symptomatic. Otherwise, she denies chest pain, shortness of breath, fever, chills, any nausea or vomiting. PAST MEDICAL HISTORY: Significant for lumbar spinal stenosis, fibromyalgia, generalized anxiety disorder with depression, gastroesophageal reflux disease, Mims's esophagus, asth (more content not included)... Note Patient: TRACEY BETANCOURT Age: 48 years Sex: Female : 1970 Associated Diagnoses: None Author: Vaibhav Phillips MD Supervising Physician Comments Documentation By: Attending Physician. Subjective Subjective: Patient participated in the evaluation: Yes. Nausea: not present. Vomiting: not present. Pain: acceptable pain control. Objective Objective: Vital Signs: Last Charted Vital Signs Temperature: 98.7 (01/18 16:57) Pulse: 51 (01/18 16:20) Respiration: 13 (01/18 16:20) BP: 91/64 (01/18 16:20) Pulse Ox: 95 (01/18 16:20) Oxygen Delivery: Room air (01/18 15:20) Pain Score: 6 (01/18 15:34) . Mental Status: Unchanged from preanesthesia assessment. Postoperative hydration: adequate. Assessment Assessment: Airway patent: yes. Plan Plan: Postanesthesia Plan: post anesthetic surveillance concluded. Assessments Diagnosis History of colon polyps Personal history of colonic polyps Family history of colonic polyps Diagnosis Post-menopausal Asymptomatic postmenopausal status (age-related) (natural) Diagnosis History of colon polyps Personal history of colonic polyps Family history of colonic polyps Diagnosis Chronic left-sided low back pain, unspecified whether sciatica present Diagnosis Acute low back pain, unspecified back pain laterality, unspecified whether sciatica present Discitis, unspecified, lumbar region Note DICTATED BY:ZHANG COHEN DO SERVICE DATE:01/19/2019 POSTOPERATIVE MEDICAL MANAGEMENT CONSULTATION She is postop day #1 from a lumbar decompression with fusion and fixation. HISTORY OF PRESENT ILLNESS: I have a 48-year-old female with history of lumbar spinal stenosis and chronic back pain, failed conservative outpatient medical management, electively decided to proceed with a lumbar decompression. She is postop day #1 and appears generally well. She is profoundly hypotensive with a hemoglobin of 7.1. She is not tachycardic; however, she is profoundly hypotensive. Currently, is receiving 1 unit of packed red blood cells and that will be expanded to 2 units of packed red blood cells and that she is symptomatic. Otherwise, she denies chest pain, shortness of breath, fever, chills, any nausea or vomiting. PAST MEDICAL HISTORY: Significant for lumbar spinal stenosis, fibromyalgia, generalized anxiety disorder with depression, gastroesophageal reflux disease, Mims's esophagus, asth (more content not included)... Procedure Findings Note Patient: TRACEY BETANCOURT MRN: [id number] Age: 48 years Sex: Female : 1970 Associated Diagnoses: None Author: Jacqueline HANNON , Vaibhav Cordoba Supervising Physician Comments Documentation By: Attending Physician. Subjective Subjective: Patient participated in the evaluation: Yes. Nausea: not present. Vomiting: not present. Pain: acceptable pain control. Objective Objective: Vital Signs: Last Charted Vital Signs Temperature: 98.7 (01/18 16:57) Pulse: 51 (01/18 16:20) Respiration: 13 (01/18 16:20) BP: 91/64 (01/18 16:20) Pulse Ox: 95 (01/18 16:20) Oxygen Delivery: Room air (01/18 15:20) Pain Score: 6 (01/18 15:34) . Mental Status: Unchanged from preanesthesia assessment. Postoperative hydration: adequate. Assessment Assessment: Airway patent: yes. Plan Plan: Postanesthesia Plan: post anesthetic surveillance concluded. Discharge Instructions * Discharge Instr - Other Orders* Melvin, Radha, RN - 01/20/2020 1:25 PM EST Last Pain Medication ([place]) was administered at 1045 Am * Additional Instructions* Drake Junekai GaleanaDarline, [place] - 01/20/2020 Learning About How to Have a Healthy Back What causes back pain? Back pain is often caused by overuse, strain, or injury. For example, people often hurt their backsplaying sports or working in the yard, being jolted in a car accident, or lifting something too heavy. Aging plays a part too. Your bones and muscles tend to lose strength as you age, which makes injurymore likely. The spongy discs between the bones of the spine (vertebrae) may suffer from wear and tear and no longer provide enough cushion between the bones. A disc that bulges or breaks open (herniated disc) can press on nerves, causing back pain. In some people, back pain is the result of arthritis, broken vertebrae caused by bone loss (osteoporosis), illness, or a spine problem. Although most people have back pain at one time or another, there are steps you can take to make itless likely. How can you have a healthy back? Reduce stress on your back through good posture Slumping or slouching alone may not cause low back pain. But after the back has been strained or injured, bad posture can make pain worse. Sleep in a position that maintains your back's normal curves and on a mattress that feels comfortable. Sleep on your side with a pillow between your knees, or sleep on your back with a pillow under your knees. These positions can reduce strain on your back. Stand and sit up straight. Good posture generally means your ears, shoulders, and hips are in a straight line. If you must stand for a long time, put one foot on a stool, ledge, or box. Switch feet every now and then. Sit in a chair that is low enough to let you place both feet flat on the floor with both knees nearly level with your hips. If your chair or desk is too high, use a footrest to raise your knees. Place a small pillow, a rolled-up towel, or a lumbar roll in the curve of your back if you need extra support. Try a kneeling chair, which helps tilt your hips forward. This takes pressure off your lower back. Try sitting on an exercise ball. It can rock from side to side, which helps keep your back loose. When driving, keep your knees nearly level with your hips. Sit straight, and drive with both hands on the steering wheel. Your arms should be in a slightly bent position. Reduce stress on your back through careful lifting Squat down, bending at the hips and knees only. If you need to, put one knee to the floor and extend your other knee in front of you, bent at a right angle (half kneeling). Press your chest straight forward. This helps keep your upper back straight while keeping a slight arch in your low back. Hold the load as close to your body as possible, at the level of your belly button (navel). Use your feet to change direction, taking small steps. Lead with your hips as you change direction. Keep your shoulders in line with your hips as you move. Set down your load carefully, squatting with your knees and hips only. Exercise and stretch your back Do some exercise on most days of the week, if your doctor says it is okay. You can walk, run, swim,or cycle. Stretch your back muscles. Here are a few exercises to try: ? Lie on your back, and gently pull one bent knee to your chest. Put that foot back on the floor, and then pull the other knee to your chest. ? Do pelvic tilts. Lie on your back with your knees bent. Tighten your stomach muscles. Pull your belly button (navel) in and up toward your ribs. You should feel like your back is pressing to the floor and your hips and pelvis are slightly lifting off the floor. Hold for 6 seconds while breathing smoothly. ? Sit with your back flat against a wall. Keep your core muscles strong. The muscles of your back, belly (abdomen), and buttocks support yourspine. ? Pull in your belly and imagine pulling your navel toward your spine. Hold this for 6 seconds, then relax. Remember to keep breathing normally as you tense your muscles. ? Do curl-ups. Always do them with your knees bent. Keep your low back on the floor, and curl your shoulders toward your knees using a smooth, slow motion. Keep your arms folded across your chest. Ifthis bothers your neck, try putting your hands behind your neck (not your head), with your elbows spread apart. ? Lie on your back with your knees bent and your feet flat on the floor. Tighten your belly muscles, and then push with your feet and raise your buttocks up a few inches. Hold this position 6 secondsas you continue to breathe normally, then lower yourself slowly to the floor. Repeat 8 to 12 times. ? If you like group exercise, try Pilates or yoga. These classes have poses that strengthen the core muscles. Lead a healthy lifestyle Stay at a healthy weight to avoid strain on your back. Do not smoke. Smoking increases the risk of osteoporosis, which weakens the spine. If you need helpquitting, talk to your doctor about stop-smoking programs and medicines. These can increase your chances of quitting for good. Where can you learn more? Log into your personal health record on https://iHydroRun.ISVS and enter L315 in the Education box to learn more about Learning About How to Have a Healthy Back. Current as of: May 12, 2019 Content Version: 12.3 2676-7217 [employer]. Care instructions adapted under license by your healthcare professional. If you have questions about a medical condition or this instruction, always ask your healthcare professional. [employer] disclaims any warranty or liability for your use of this information. documented in this encounter* Attachments The following attachments cannot be sent through Care Everywhere. * Chronic Pain ([place] Indian) * Back Pain ([place] Indian) documented in this encounter* Instructions* [id number], Akhil, PT - 02/15/2020 After Hours Care Information Please dial 911 or report to the closest emergency department for emergencies outside of the department s normal business hours. For non-emergency questions or concerns, the patient may call the office on the next business day at [phone] or call the [facility] NurseLine at [phone] or . When to stay home: We appreciate your best efforts to attend scheduled appointments. However, there are times we request you stay home: Elevated temperature, 100 degrees or higher Vomiting or diarrhea (any episode in the last 24 hours) Lice, bed bugs, scabies Skin infections including impetigo, ringworm, unexplained rashes, or shingles Yale eye or any other illness that may be given to other therapy participants or therapists Severe respiratory infections, sore throat, severe colds or flu Blood pressure above 160/100 If you have any questions regarding whether you should attend therapy, please call your therapist at [phone]. The Rehab staff reserves the right to cancel therapy for you due to illness. CANCELLATION/NO SHOW POLICY Effective May 17, 2013, Cancellation/No Show policy ( Administrative Discharge ) will be implemented. This policy has been adopted so that treatments prescribed by your physician can be carried out in the most effective and efficient manner possible. Missed appointments, whether by cancellation or no show, result in decreased benefit of services rendered and tie up appointment times which could be opened up for other patients requiring services. I have read and/or been fully informed of the Administrative Discharge policy and understand that repeated no-shows or cancellations may result in such discharge. I understand that my physician will also receive notification of such discharge if it occurs. The policy explains the situations where a patient may be administratively discharged. Please review carefully and feel free to ask any questions. If you need assistance in reading or understanding this policy, please let us know and we will be glad to help. If you want a paper copy see Front Office Staff. [facility] PAYMENT POLICY I UNDERSTAND I AM RESPONSIBLE FOR KNOWING THE TERMS OF MY INSURANCE POLICY. IF I CHOOSE TO HAVE A SERVICE DONE THAT IS NOT COVERED BY MY INSURANCE OR IF I FAIL TO OBTAIN A PRE-CERTIFICATION OR REFERRAL BY MY INSURANCE COMPANY I WILL BE HELD RESPONSIBLE FOR THE PAYMENT. I HAVE READ ALL THE ABOVE STATEMENTS AND I AGREE TO THE TERMS OF THIS AGREEMENT. If financial assistance is needed, please call Resource Counseling at [phone] or [phone]. documented in this encounter History of Present Illness * June Juan, [place] - 01/20/2020 7:31 AM EST [facility] Inpatient Progress Note 01/20/2020 Tracey Betancuort 1970 [id number] Assessment/Plan: Tracey Betancourt is a 49 y.o. female with a history of chronic back pain, status post lumbar spinal surgery for severe spinal canal stenosis on 01/15/2019 at [facility] who presented to an outlying emergency department with acute on chronic back pain of 3 days duration and subsequently transferred [facility] 01/19/2020 with concern for possible discitis based on MRI lumbar spine. Patient has no fever, normal white count, ESR of 38 and CRP of 5.2. 1. Acute on chronic low back pain with bilateral sciatica: Differential diagnosis based on MRI is progressive endplate degenerative disease at L2-L3 versus discitis. Given lack of fever, with normal white count, ESR 38 and CRP of 5.2 discitis is unlikely. No history of IV drug use or prior history of discitis. Dr. Eisenberg of neurosurgery evaluated and noted unlikely infection and noted likely CT changes likely due degenerative changes. F/U with Dr. Curran (Neurosurgery) as an outpatient. Discharged with prn flexeril and medrol dose pack. 2. Hyperlipidemia: Continue statin therapy 3. Depression: Paxil reordered 4. Constipation: Patient comes planes of constipation rather than fecal incontinence. Given that patient was started on PRN narcotics for pain control laxative was added 5. Tobacco abuse: Smokes half pack of cigarettes a day since 13 years of age. Counseled on the needfor tobacco cessation. 6. DVT Prophylaxis: SCD's Current living situation: Home with spouse Expected Disposition: TBD Estimated discharge date: TBD Subjective: Reports that pain is improved this morning and localized to her lower back. Reports that pain is not radiating down her leg this morning. Physical Exam: BP 126/79 (BP Location: Right arm, Patient Position: Lying) Pulse 62 Temp 98 F (36.7 C) (Oral) Resp 16 Ht 5' 1 Wt 43.1 kg (95 lb) SpO2 96% BMI 17.95 kg/m General Appearance: alert, well appearing, and in no acute distress HEENT: Head- normocephalic; Eyes- PERRLA, EOMI; Ears- external auditory canals clear, hearing intact; Nose- no nasal discharge; Throat- oropharynx normal Cardiovascular: regular rate and rhythm; normal S1, S2; no murmurs, rubs, clicks or gallops; no peripheral edema Respiratory: lungs clear to auscultation; without wheezes, rales or rhonchi Abdomen: soft, non-tender, non-distended; positive bowel sounds Neurological: alert, oriented x 3, normal speech; bilateral straight leg raising test limited to about 45 degrees on the left side and about 20 degrees on the right side. Is mostly due to pain. Sensation in the perineal region intact. Musculoskeletal: no significant deformity or tenderness to palpation Skin: normal coloration, texture and turgor; no lesions or eruptions Psych: normal mood and affect Current Medications: Labs, Imaging and Studies reviewed: Results from last 7 days Lab Units 01/20/20 0058 WBC K/mcL 8.85 HGB g/dL 11.7* HCT % 36.2 PLT K/mcL 333 Invalid input(s): MAG CLEMENCIA * Sotero Eisenberg MD - 01/20/2020 7:25 AM EST ASSESSMENT/PLAN: 49-year-old female presented to [facility] with acute on chronic low back pain. The patient has had lumbar surgery with Dr. Reeves in the past but was unable to be transferred to [place]. There was concern for discitis on the lumbar MRI. MRI L/s dual ([facility]): Mild progressive endplate degenerative changes at L2-L3 with marrow edema and enhancement likely due to to junction degenerative changes; less likely infection. Acute on chronic low back pain with possible discitis -Neuro exam: 5/5 strength all extremities, no red flags -Neuro checks q4 hrs -Admit to medicine, obs appropriate -CRP 5.2, ESR 38, WBC 8.85 -Afebrile -Influenza swab negative -Ok for diet from neurosurgical standpoint -Check PVRs -No AC/AP -Activity as tolerated -Pain control per primary documented in this encounter Reason for Referral Status Reason Specialty Diagnoses / Procedures Re ferred By Contact Referred To Contact Open Neurosurgery Diagnoses Chronic left-sided low back pain, unspecified whether sciatica present Crispin Pradhan II, MD [address] [place] [address] [place] [address] Status Reason Specialty Diagnoses / Procedures Referred By Contact Referred To Contact Authorized Rehabilitation Diagnoses Concussion without loss of consciousness, initial encounter Gema Saldaña, MERCHANDISING ASSISTANT [address] [place] [address] Additional Source Comments INFORMATION SOURCE (unrecogn ized section and content) DATE CREATED AUTHOR AUTHOR'S ORGANIZ ATION 02/02/[address] [facility] DATE CREATED AUTHOR AUTHOR'S ORGANIZ ATION 01/22/[address] [facility] DATE CREATED AUTHOR AUTHOR'S ORGANIZ ATION 06/19/2021 [facility] DATE CREATED AUTHOR AUTHOR'S ORGANIZ ATION 06/27/2021 [facility] DATE CREATED AUTHOR AUTHOR'S ORGANIZ ATION 07/19/2021 [facility] DATE CREATED AUTHOR AUTHOR'S ORGANIZ ATION 07/07/2023 [facility] DATE CREATED AUTHOR AUTHOR'S ORGANIZ ATION 08/07/2023 [facility] Reason for Visit (unrecogniz ed section and content) Status Reason Specialty Diagnoses / Procedures Referre d By Contact Referred To Contact Diagnoses Acute low back pain, unspecified back pain laterality, unspecified whether sciatica present Discitis, unspecified, lumbar region Back pain, concern for Discitis per MRI Reason Comments Provider Referral Back Pain Reason Comments Outpatient Physical Therapy Status Reason Specialty Diagnoses / Procedures Referred By Contact Referred To Contact Authorized Physical Therapy Diagnoses Spinal stenosis, lumbar region without neurogenic claudication DELIA moran ORDER SCANNED Procedures PT EVAL PAT, DEV PLAN OF CARE, IMPLEMENT PHYSICAL THERAPY EVALUATION Jeanna Moran PA [address] [facility] [address] [id number], PT Reason Comments Fall Alcohol Intoxication Status Reason Specialty Diagnoses / Procedures Referre d By Contact Referred To Contact Diagnoses Left eyelid laceration, initial encounter Fall, initial encounter Concussion without loss of consciousness, initial encounter Alcoholic intoxication without complication (HCC) Eyelid laceration, initial encounter Trauma/Fall/Complex Eye Laceration/Intoxicated Reason Comments Chest Congestion Shortness of Breath Reason Comments Dysuria Reason Comments Shortness of Breath Reason Comments Cough Reason Comments Cough Jefry Shannon MD - 01/20/2020 12:40 AM EST H&P Notes (unrecognized sect ion and content) [facility] History and Physical Note 01/20/20 Tracey Betancourt 1970 [id number] Assessment/Plan: Tracey Betancourt is a 49 y.o. female with a history of chronic back pain, status post lumbar spinal surgery for severe spinal canal stenosis on 01/15/2019 at [facility] who presented to an [facility] emergency department with acute on chronic back pain of 3 days duration and subsequently transferred [facility] 01/19/2020 with concern for possible discitis based on MRI lumbar spine. Patient has no fever, normal white count, ESR of 38 and CRP of 5.2. 1. Acute on chronic low back pain with bilateral sciatica: Differential diagnosis based on MRI is progressive endplate degenerative disease at L2-L3 versus discitis. Given lack of fever, with normal white count, ESR 38 and CRP of 5.2 discitis is unlikely. No history of IV drug use or prior history of discitis. Neurosurgery consulted in the emergency department. Hold off on antibiotics given lack of convincing evidence for discitis. IV Toradol and Percocet for pain control. Further recommendations per neurosurgery. PT OT ordered with activity as tolerated 2. Hyperlipidemia: Continue statin therapy 3. Depression: Paxil reordered 4. Constipation: Patient comes planes of constipation rather than fecal incontinence. Given that patient was started on PRN narcotics for pain control laxative was added 5. Tobacco abuse: Smokes half pack of cigarettes a day since 13 years of age. Counseled on the need for tobacco cessation. 6. DVT Prophylaxis: SCDs Current living situation: Home with spouse Expected Disposition: TBD Estimated discharge date: TBD Chief Complaint: Acute on chronic low back pain History of Present Illness: Patient is a vague and nonspecific historian and getting specifics from her was somewhat challenging. As far as I could gather she has had chronic back pain which is also previously documented on care everywhere within [facility] from 2013. She has undergone lumbar spinal surgery for severe spinal canal stenosis by Dr. Stanley at [facility] on 01/18/2019. Apparently over the last 72 hours from what I could gather patient started developing worsening back pain. She subsequently presented to local emergency department for evaluation. There had been some concern for intermittent urinary retention although patient did not give a definitive answer when I questioned her during my evaluation in the emergency department. Denies any bladder bowel incontinence. She complains of back pain shooting down both legs. At the outlying facility patient was afebrile. Urine analysis negative. CRP 0.45. Blood sugar 91, creatinine 0.72, sodium 143, potassium 3.6,. Patient subsequently underwent MRI lumbar spine prior to the transfer. MRI is reported as showing history of posterior fusion at L3-L4. Progression of degenerative disease at L2-L3 and L1-L2. Mild progressive endplate degenerative changes at L2-L3 with marrow edema and enhancement likely due to junctional degenerative changes. Infection cannot be ruled out. For this reason patient was transferred to [facility] for further evaluation and treatment. Patient does not have any fever or chills. Lab work here reveals white count of 8.85, ESR of 38, and CRP of 5.2. All systems have been reviewed and are negative except as noted in HPI or below Constitutional: Denies fever, chills, weight loss Eyes: Denies vision changes ENT: Denies hearing loss, nasal congestion, sore throat CV: Denies chest pain, palpitations, peripheral edema Respiratory: Denies shortness of breath, cough, wheezing GI: Denies abdominal pain, nausea, vomiting, diarrhea, constipation : Denies dysuria, frequent urination MSK: Please see HPI Integumentary: Denies skin changes, pruritis Neurological: Denies dizziness, headache, numbness or tingling -please see HPI Psychiatric: Denies depression, anxiety, sleep disturbance Endocrine: Denies heat or cold intolerance, excessive thirst Hematological: Denies abnormal bleeding or bruising Allergy/Immunological: Denies hives, swelling of lips or tongue Past Medical History: Diagnosis Date Asthma COPD (chronic obstructive pulmonary disease) ([facility]) Past Surgical History: Procedure Laterality Date BACK SURGERY HYSTERECTOMY ORTHOPEDIC SURGERY L arm Social History Socioeconomic History Marital status: Single Spouse name: Not on file Number of children: Not on file Years of education: Not on file Highest education level: Not on file Occupational History Not on file Social Needs Financial resource strain: Not on file Food insecurity Worry: Not on file Inability: Not on file Transportation needs Medical: Not on file Non-medical: Not on file Tobacco Use Smoking status: Current Every Day Smoker Packs/day: 0.50 Years: 40.00 Pack years: 20.00 Types: Cigarettes Smokeless tobacco: Never Used Substance and Sexual Activity Alcohol use: Not Currently Drug use: Not Currently Sexual activity: Not on file Lifestyle Physical activity Days per week: Not on file Minutes per session: Not on file Stress: Not on file Relationships Social connections Talks on phone: Not on file Gets together: Not on file Attends yarsani service: Not on file Active member of club or organization: Not on file Attends meetings of clubs or organizations: Not on file Relationship status: Not on file Other Topics Concern Not on file Social History Narrative Not on file History reviewed. No pertinent family history. Home Medications: No current outpatient medications on file as of 01/19/2020. Physical Exam: BP 128/67 (BP Location: Right arm, Patient Position: Lying) Pulse 69 Temp 97.9 F (36.6 C) (Oral) Ht 5' 1 Wt 43.1 kg (95 lb) SpO2 99% BMI 17.95 kg/m General Appearance: alert, well appearing, and in no acute distress HEENT: Head- normocephalic; Eyes- PERRLA, EOMI; Ears- external auditory canals clear, hearing intact; Nose- no nasal discharge; Throat- oropharynx normal Cardiovascular: regular rate and rhythm; normal S1, S2; no murmurs, rubs, clicks or gallops; no peripheral edema Respiratory: lungs clear to auscultation; without wheezes, rales or rhonchi Abdomen: soft, non-tender, non-distended; positive bowel sounds Neurological: alert, oriented x 3, normal speech; bilateral straight leg raising test limited to about 45 degrees on the left side and about 20 degrees on the right side. Is mostly due to pain. Sensation in the perineal region intact. Musculoskeletal: no significant deformity or tenderness to palpation Skin: normal coloration, texture and turgor; no lesions or eruptions Psych: normal mood and affect Labs, Imaging, and Studies reviewed: Invalid input(s): MAG CLEMENCIA documented in this encounter Stephanie Galloway PA-C - 01/19/2020 10:36 PM EST Consult Notes (unrecognized section and content) Neurosurgery Inpatient Consult [facility] 01/19/2020 Stephanie Galloway PA-C Neurosurgery JOE Direct Line: [phone] [facility] Patient: Tracey Betancourt Date of : 1970 (49 y.o.) Referring Provider: Refer to consult order in electronic medical record PCP: Gin Banerjee CNP ASSESSMENT/PLAN: 49-year-old female presented to [facility] with acute on chronic low back pain. The patient has had lumbar surgery with Dr. Reeves in the past but was unable to be transferred to [place]. There was concern for discitis on the lumbar MRI. MRI L/s dual ([facility]): Mild progressive endplate degenerative changes at L2-L3 with marrow edema and enhancement likely due to to junction degenerative changes; less likely infection. Acute on chronic low back pain with possible discitis -Neuro exam: 5/5 strength all extremities, no red flags -Neuro checks q4 hrs -Admit to medicine, obs appropriate -CRP 5.2, ESR 38, WBC 8.85 -Afebrile -Influenza swab negative -Ok for diet from neurosurgical standpoint -Check PVRs -No AC/AP -Activity as tolerated -Pain control per primary -Further neurosurgical plans after images and case reviewed by attending Will discuss assessment & plan with Dr. Faina Galloway PA-C Please call [phone] with any questions or concerns SUBJECTIVE: Chief Complaint/Reason for Consult: Acute on chronic back pain radiating to LLE Time of arrival to bedside: 22:55 Informant(s): Patient, Care Team/Chart History of Present Illness: Tracey Betancourt is a 49 y.o. female who was transferred from [facility] for evaluation of possible discitis at L2-3. The patient has a history of low back pain and underwent L3-[address] Reeves at [place] about 2 years ago. There is also an interbody spacer at L5-S1. The patient began to have severe back pain that radiates to her lower abdomen three days ago. She denies any recent spinal injections, trauma, dental work, and surgical procedures. The patient states she did have the flu 2 weeks ago and has a continued cough with shortness of breath. She did have a fall about a month ago where she landed on her butt, but this does not correlate to the onset of her symptoms. The back pain is so severe it is difficult for her to walk. At baseline, she has left more than right sharp pain and numbness in her posterior thigh that does not radiate below her knee. She feels she has weakness in her lower extremities. She reports chills but denies fever. MRIs of the thoracic and lumbar spine with and without contrast were obtained at [facility] and notable for degenerative changes at L2-3 with possible discitis. No AC/AP. Patient denies headache, dizziness, blurred vision, chest pain, dysuria, bowel and bladder dysfunction, saddle anesthesia, neck pain and upper extremity radiculopathy/paresthesias/weakness. Review of Systems: All systems reviewed and negative except pertinent positives and negatives documented in the History of Present Illness (HPI). Past Medical History: has a past medical history of Asthma and COPD (chronic obstructive pulmonary disease) (HCC). Past Surgical History: has a past surgical history that includes Hysterectomy; Back surgery; and orthopedic surgery. Social History: reports that she has been smoking cigarettes. She has a 20.00 pack-year smoking history. She has never used smokeless tobacco. She reports previous alcohol use. She reports previous drug use. Family History: family history is not on file. No known bleeding disorders. Additional History Comments: None Allergies: is allergic to gabapentin and tramadol. HOME Medications: Albuterol, Atorvastatin, Claritin, Paxil, vitamin D3 OBJECTIVE: Physical Examination: BP (!) 152/85 (BP Location: Right arm, Patient Position: Lying) Pulse 65 Temp 97.9 F (36.6 C) (Oral) Ht 5' 1 Wt 43.1 kg (95 lb) SpO2 99% BMI 17.95 kg/m MARQUES: DNFC: Does Not Follow Commands MARYCHUY: Unable to Assess GENERAL: General Appearance: In NAD Neck: Supple Eyes: See pupils below Ears: See hearing below Respiratory Effort: Normal; coughing Extremities: No edema Skin: No rashes visualized MENTAL STATUS: Alertness, Attention Span & Concentration: Normal Language: Normal Speech: Normal Orientation: Normal Memory, Recent & Remote: Normal Fund of Knowledge: Normal CRANIAL NERVES: II - Visual Dozier: Normal II, III - Pupils: PERRL @ 4mm III, IV, - Eye Movements: Normal (EOMI, no ptosis, no nystagmus) V - Facial Sensation: Normal VII - Face Symmetry and Strength: Normal VIII - Hearing: Normal IX, X - Palate: Normal XI - Shoulder Shrug: Normal XII - Tongue Protrusion: Normal COORDINATION & GROSS MOTOR: Abnormal Movements: None Coordination: Normal Tone: Normal MOTOR - MUSCLE STRENGTH: Right Muscle Strength Left 5 Shoulder Abduction (Deltoid) 5 5 Elbow Flexion (Biceps) 5 5 Elbow Extension (Triceps) 5 5 Mine Analyst (Flexor Digitorum) 5 4- Finger Abduction (Interossei) 4- 5 Hip Flexion (Iliopsoas) 5 5 Knee Extension (Quads) 5 5 Dorsiflexion (Anterior Tibialis) 5 5 Plantar Flexion (Gastrocnemius) 5 Left DF/PF initially 4 to 4+, but effort improved with encouragement REFLEXES: Negative Inman's sign bilaterally; No clonus SENSATION: Fine Touch: Normal DATA REVIEWED: Labs: No results found for: NA, TIH4TXI, INR, HGB, OSMO, WBC, PLT, BUN, CREATININE Imaging: I personally reviewed the images and reports. MRI Lumbar with and without: Evidence of posterior fusion L3-L4. Since the previous examination there has been progression of junction degenerative changes L2-L3 and L1-L2. Mild progressive endplate degenerative changes at L2-L3 with marrow edema and enhancement likely due to to junction degenerative changes. Please note that infection could have a similar appearance although thought less likely. Moderate degenerative canal stenosis and moderate to severe neural foraminal narrowing at L2-L3 due to the junction degenerative changes. XR Lumbar: Posterior lumbar fusion and laminectomy at L3-L4. Grade 1 anterolisthesis at L5-S1. Intervertebral prosthesis is noted at this level. MRI Thoracic: No significant degenerative changes. No postcontrast enhancement. XR Thoracic: Unremarkable radiographs. documented in this encounter Brian Finnegan - 01/20/2020 12:19 AM Naa Montalvo MD - 01/19/2020 11:44 PM Pat Flores RN - 01/19/2020 10:17 PM Shonna Kenyon RN - 01/19/2020 10:16 PM EST ED Notes (unrecognized secti on and content) [facility] to write orders for brittany admission [id number] ED ATTENDING NOTE [facility] EMERGENCY DEPARTMENT PCP - Gin Banerjee CNP Chief Complaint Patient presents with Back Pain HPI 49-year-old female with history of asthma, COPD, and tobacco abuse presents to the emergency department complaints of increasing back pain and urinary retention. Patient reports having acute on chronic back pain since her back surgery but symptoms have been a lot worse over the last 3 days. She reports radiation down her left leg. She denies any known fever. She denies any history of IV drug use. She is also noted to have urinary retention with a postvoid residual of 300 mL. MRI per report from the [facility] showed the possibility of discitis at L2-L3. She was transferred here for neurosurgery evaluation. She denies other acute complaints. Review of Systems Constitutional: no known fevers, no unexpected weight change Skin: No color changes Eyes: No discharge ENMT: No drooling Respiratory: No stridor Genitourinary: No dysuria or hematuria; denies urinary and stool incontinence Endocrine: No polyphagia Neurologic: No new face asymmetry Psychiatric: No self injury Hematologic/Lymphatic: No new easy bruising Allergic/Immunologic: No urticaria Past Medical History Past Medical History: Diagnosis Date Asthma COPD (chronic obstructive pulmonary disease) (HCC) Past Surgical History Past Surgical History: Procedure Laterality Date BACK SURGERY HYSTERECTOMY ORTHOPEDIC SURGERY L arm Family History History reviewed. No pertinent family history. Social History Social History Tobacco Use Smoking status: Current Every Day Smoker Packs/day: 0.50 Years: 40.00 Pack years: 20.00 Types: Cigarettes Smokeless tobacco: Never Used Substance Use Topics Alcohol use: Not Currently Drug use: Not Currently Allergies Allergies Allergen Reactions Gabapentin Diarrhea Tramadol GI Intolerance Medications There are no discharge medications for this patient. Physical Exam Initial Vital Signs BP 128/67 (BP Location: Right arm, Patient Position: Lying) Pulse 69 Temp 97.9 F (36.6 C) (Oral) Ht 5' 1 Wt 43.1 kg (95 lb) SpO2 99% BMI 17.95 kg/m Vital Signs During ED Visit (as charted by nursing) Patient Vitals for the past 24 hrs: BP Temp Temp src Pulse SpO2 Height Weight 01/20/20 0010 128/67 69 99 % 01/19/20 2219 (!) 152/85 97.9 F (36.6 C) Oral 65 99 % 5' 1 43.1 kg (95 lb) Physical Exam Vitals signs and nursing note reviewed. Constitutional: Appearance: She is normal weight. HENT: Head: Normocephalic. Nose: Nose normal. Mouth/Throat: Mouth: Mucous membranes are moist. Eyes: Extraocular Movements: Extraocular movements intact. Neck: Musculoskeletal: Normal range of motion and neck supple. Cardiovascular: Rate and Rhythm: Normal rate and regular rhythm. Pulses: Normal pulses. Heart sounds: Normal heart sounds. Pulmonary: Effort: Pulmonary effort is normal. Breath sounds: Normal breath sounds. Abdominal: Palpations: Abdomen is soft. Musculoskeletal: General: Tenderness present. Lumbar back: She exhibits tenderness. She exhibits no deformity. Back: Skin: General: Skin is warm and dry. Capillary Refill: Capillary refill takes less than 2 seconds. Neurological: General: No focal deficit present. Mental Status: She is alert and oriented to person, place, and time. Psychiatric: Mood and Affect: Mood normal. Behavior: Behavior normal. Labs Reviewed INFLUENZA A,B RAPID MOLECULAR Radiographic Imaging (if any) During ED Visit MR Comparison Import Final Result MR Comparison Import Final Result XR Comparison Import Final Result CT Comparison Import Final Result Medications Ordered/Given During ED Visit Medications HYDROmorphone (DILAUDID) injection 1 mg (1 mg Intravenous Given 01/20/20 0005) Procedures IMPRESSION 1. Acute low back pain, unspecified back pain laterality, unspecified whether sciatica present MEDICAL DECISION MAKING [facility] MRI report from the [facility] shows evidence of posterior fusion at L3- L4. Since previous exam there has been progression of junctional degenerative changes at L2-3 and L1-L2. Mild progressive endplate degenerative changes at L2-3 with marrow edema and enhancement likely due to junctional degenerative changes. Please note that infection could have a similar appearance although thought less likely. Correlation recommended. I did consult neurosurgery. Patient will be hospitalized to the observation unit pending further evaluation by neurosurgery. DISPOSITION Hospitalize. Naa Thurman MD 01/20/20 0016 Per transfer center ED physician reports patient with concerns for Discitis in back, requesting transfer to [facility]. Hx chronic back issues, pain a lot worse last 3 days with radiation down left leg, no fever. Pt also with Urinary retention, post void - 300ml retained, denies incontinence. Sed rate 55, CRP 0.45. MRI done, L2/L3 could represent inflammatory process, possibly discitis. ED physician concerned for discitis. Per EMS-08/26 back pain and constipation. Here for neuro consult. Bed: 59 Expected date: Expected time: Means of arrival: Comments: [id number]/Ref_Asia/Cuca documented in this encounter Quick Note - Radha Melvin RN - 01/20/2020 1:37 PM EST Miscellaneous Notes (unrecog nized section and content) Reviewed AVS with patient and answered all questions. Patient and all belongings wheeled to front entrance to family vehicle. Spouse to transfer patient home. documented in this encounter Scheduled Active and Recently Administ ered Medications (unrecognized section and content) Continuous Medication Order 06/17/2021 06/18/2021 06/19/2021 lactated Ringers infusion 25 mL/hr, Intravenous, Continuous, Starting on Fri06/19/21 at 1500 1415 (New Bag - Prov ider: Hannah Barraza RN)1454 (New Bag - Provider: Jillian Bass CRNA)1530 (Paused - Provider: Polina Rosario CRNA - Comment: Switch to gravity)1531 (Restarted - Provider: Polina Rosario CRNA) PRN Medication Order 06/17/2021 06/18/2021 06/19/2021 acetaminophen (TYLENOL) tablet 650 mg 650 mg, Oral, Every 4 hours PRN, mild pain, fever 100.4 F or greater, headaches, Starting on Fri06/18/21 at 2235, [] If ketorolac (TORADOL) is ordered and active, use it first for mild pain. 0603 (Given - Provid er: Richardson Fuller RN)1336 ([facility] Hold - Provider: Transfer Provider, Automatic - Reason: Unreviewed Transfer Orders)183 ([facility] Unhold - Provider: Gema aSldaña CNP) albuterol (PROVENTIL) 2.5 mg /3 mL (0.083 %) nebulizer solution 2.5 mg 2.5 mg, Nebulization, Every 6 hours PRN (RT), wheezing, Starting on Fri06/19/21 at 0141 0951 (Given - Provid er: Genoveva Booth RN)133 ([facility] Hold - Provider: Transfer Provider, Automatic - Reason: Unreviewed Transfer Orders)1838 ([facility] Unhold - Provider: Gema Saldaña CNP) bupivacaine-EPINEPHrine (PF) (MARCAINE-PF w/EPI) 0.75 %-1:200,000 injection (CANCELED) As needed, Starting on Fri06/19/21 at 1523, Intra-Procedure 1523 (Given - Provid er: Blessing Kam MD) cyclobenzaprine (FLEXERIL) tablet 5 mg 5 mg, Oral, 3 times daily PRN, muscle spasms, Starting on Fri06/19/21 at 0134 0357 (Given - Provid er: Richardson Fuller RN)133 ([facility] Hold - Provider: Transfer Provider, Automatic - Reason: Unreviewed Transfer Orders)183 ([facility] Unhold - Provider: Gema Saldaña CNP) ibuprofen (ADVIL,MOTRIN) tablet 400 mg 400 mg, Oral, Every 6 hours PRN, fever 100.4 F or greater, headaches, mild pain, Starting on Fri06/19/21 at 0134, Give with Food Do Not Crush or Chew if administering orally due to bitter taste. May be crushed if given via tube. 0830 (Given - Provid er: Lisandra Davison RN)1336 ([facility] Hold - Provider: Transfer Provider, Automatic - Reason: Unreviewed Transfer Orders)183 ([facility] Unhold - Provider: Gema Saldaña CNP) naloxone (NARCAN) injection 0.1 mg(Linked Group 2) 0.1 mg, Intravenous, As needed, opioid reversal, For respiratory rate less than or equal to 8 per minute., Starting on Fri06/18/21 at 2147, Mix nalOXone (NARCAN) 0.4 mg (1ml) with 9 mL of Normal Saline to total 10 mL. Administer 0.1 mg (2.5ml) IV Push every 2 minutes until respiratory rate is 10 or greater. 1336 ([facility] Hold - Pro vider: Transfer Provider, Automatic - Reason: Unreviewed Transfer Orders)1838 ([facility] Unhold - Provider: Gema Saldaña CNP) naloxone (NARCAN) injection 0.4 mg(Linked Group 2) 0.4 mg, Intravenous, As needed, opioid reversal, patient is pulseless, breathless, and unresponsive, Starting on Fri06/18/21 at 2147, Call a code first, then administer naloxone dose undiluted IV Push over 30 seconds. 1336 ([facility] Hold - Pro vider: Transfer Provider, Automatic - Reason: Unreviewed Transfer Orders)1838 ([facility] Unhold - Provider: Gema Saldaña CNP) ondansetron (ZOFRAN) injection 4 mg(Linked Group 3) 4 mg, Intravenous, Every 6 hours PRN, nausea, vomiting, Starting on Fri06/18/21 at 2235, [] Oral or IV - use oral route if tolerated. 1336 ([facility] Hold - Pro vider: Transfer Provider, Automatic - Reason: Unreviewed Transfer Orders)1838 ([facility] Unhold - Provider: Gema Saldaña CNP) ondansetron (ZOFRAN-ODT) disintegrating tablet 4 mg(Linked Group 3) 4 mg, Oral, Every 6 hours PRN, nausea, vomiting, Starting on Fri06/18/21 at 2235, [] Oral or IV - use oral route if tolerated. Formulation requires tablet remain in sealed package until immediately prior to dose being administered. 1336 ([facility] Hold - Pro vider: Transfer Provider, Automatic - Reason: Unreviewed Transfer Orders)1838 ([facility] Unhold - Provider: Gema Saldaña CNP) oxyCODONE (ROXICODONE) immediate release tablet 5 mg 5 mg, Oral, Every 6 hours PRN, moderate to severe pain, Starting on Fri06/19/21 at 0135 0357 (Given - Provid er: Richardson Fuller RN)1336 ([facility] Hold - Provider: Transfer Provider, Automatic - Reason: Unreviewed Transfer Orders)183 ([facility] Unhold - Provider: Gema Saldaña CNP) PHENobarbital injection 65 mg 65 mg, Intramuscular, Every 6 hours PRN, Two of the following: SBP greater than 160 or DBP greater than 100, Significant agitation (RASS greater than +2), HR greater than 110, Diaphoresis, tremors, Hallucinations, Starting on Fri06/18/21 at 2306, For 5 days, VESICANT 1336 ([facility] Hold - Pro vider: Transfer Provider, Automatic - Reason: Unreviewed Transfer Orders)183 ([facility] Unhold - Provider: Gema Saldaña CNP) sodium chloride (PF) (NS) flush 5 mL(Linked Group 4) 5 mL, Intravenous, As needed, line care, Starting on Fri06/18/21 at 2146 1336 ([facility] Hold - Pro vider: Transfer Provider, Automatic - Reason: Unreviewed Transfer Orders)183 ([facility] Unhold - Provider: Gema Saldaña CNP) sodium chloride 0.9% (NS)(Linked Group 4) 0-150 mL/hr, Intravenous, As needed, To flush line after IV infusions when no maintenance IV ordered or a compatibility issue. Infuse 20ml at the same rate as the secondary infusion, Starting on Fri06/18/21 at 2146, Run as Primary IV. NOT intended for KVO. 1336 ([facility] Hold - Pro vider: Transfer Provider, Automatic - Reason: Unreviewed Transfer Orders)1838 ([facility] Unhold - Provider: Gema Saldaña CNP) Linked Groups Order Group 1: PHENobarbital injection 117 mg (COMPLETED)Jump to med 117 mg (rounded from 114.72 mg = 2.4 mg/kg 47.8 kg [place] weight), Intramuscular, Once, On Fri06/19/21 at 0000, For 1 dose
If volume exceeds 2 mL please draw up dose in multiple syringes. VESICANT
Followed by PHENobarbital injection 84.5 mg (COMPLETED)Jump to med 84.5 mg (rounded from 86.04 mg = 1.8 mg/kg 47.8 kg [place] weight), Intramuscular, Every 3 hours, First dose on Fri06/19/21 at 0300, For 2 doses
If volume exceeds 2 mL please draw up dose in multiple syringes. VESICANT
Followed by PHENobarbitaL (LUMINAL) tablet 64.8 mgJump to med 64.8 mg, Oral, Every 12 hours, First dose on Fri06/19/21 at 1800, For 2 doses Followed by PHENobarbitaL (LUMINAL) tablet 32.4 mgJump to med 32.4 mg, Oral, Every 12 hours, First dose on Fri06/20/21 at 1757, For 2 doses Followed by PHENobarbitaL (LUMINAL) tablet 32.4 mgJump to med 32.4 mg, Oral, Every 24 hours, First dose on Fri06/22/21 at 0600, For 1 dose Group 2: naloxone (NARCAN) injection 0.1 mgJump to med 0.1 mg, Intravenous, As needed, opioid reversal, For respiratory rate less than or equal to 8 per minute., Starting on Fri06/18/21 at 2147
Mix nalOXone (NARCAN) 0.4 mg (1ml) with 9 mL of Normal Saline to total 10 mL. Administer 0.1 mg (2.5ml) IV Push every 2 minutes until respiratory rate is 10 or greater.
And Notify physician (CANCELED) STAT, Until discontinued, Starting on Fri06/18/21 at 2150, Until Specified
Respiratory rate less than: 8
For respiratory rate less than or equal to 8, notify physician and/or appropriate staff for additional orders. And naloxone (NARCAN) injection 0.4 mgJump to med 0.4 mg, Intravenous, As needed, opioid reversal, patient is pulseless, breathless, and unresponsive, Starting on Fri06/18/21 at 2147
Call a code first, then administer naloxone dose undiluted IV Push over 30 seconds.
Group 3: ondansetron (ZOFRAN-ODT) disintegrating tablet 4 mgJump to med 4 mg, Oral, Every 6 hours PRN, nausea, vomiting, Starting on Fri06/18/21 at 2235
[] Oral or IV - use oral route if tolerated. Formulation requires tablet remain in sealed package until immediately prior to dose being administered.
Or ondansetron (ZOFRAN) injection 4 mgJump to med 4 mg, Intravenous, Every 6 hours PRN, nausea, vomiting, Starting on Fri06/18/21 at 2235
[] Oral or IV - use oral route if tolerated.
Group 4: Insert peripheral IV (COMPLETED) ALAN, Once, On Fri06/18/21 at 2150, For 1 occurrence And Saline lock IV (CANCELED) ALAN, Once, On Fri06/18/21 at 2150, For 1 occurrence And sodium chloride (PF) (NS) flush 5 mLJump to med 5 mL, Intravenous, As needed, line care, Starting on Fri06/18/21 at 2146 And sodium chloride 0.9% (NS)Jump to med 0-150 mL/hr, Intravenous, As needed, To flush line after IV infusions when no maintenance IV ordered or a compatibility issue. Infuse 20ml at the same rate as the secondary infusion, Starting on Fri06/18/21 at 2146
Run as Primary IV. NOT intended for KVO.
Scheduled Medication Order 07/25/2021 07/26/2021 07/27/2021 albuterol 2.5mg-ipratropium 0.5mg/3ml (DUONEB) nebulizer soln 6 mL (COMPLETED) 6 mL, Nebulization, ONCE RT, 1 dose, On Fri07/27/21 at 1900, Is patient suspected or confirmed to have COVID-19? Yes 1828 (Given - Provid er: Charisse George, FRANCESCA) Albuterol Sulfate nebulizer soln 2.5 mg (COMPLETED) 2.5 mg, Nebulization, ONCE, 1 dose, On Fri07/27/21 at 1900, Is patient suspected or confirmed to have COVID-19? Yes 1828 (Given - Provid er: Charisse George RRT) Dexamethasone (DECADRON) injection 10 mg (COMPLETED) 10 mg, IV Push, NOW, 1 dose, On Fri07/27/21 at 1915 1905 (Given - Provid er: Rosalia Mancilla RN) doxycycline (MONODOX) capsule 100 mg (COMPLETED) 100 mg, Oral, NOW, 1 dose, On Fri07/27/21 at 2030, Indications: Lower Respiratory Tract Infection 2010 (Given - Provid er: Mary Teague RN) Scheduled Medication Order 02/02/2022 02/03/2022 02/04/2022 Nitrofurantoin (macrocrystal-monohydrate) (MACROBID) capsule 100 mg (COMPLETED) 100 mg, Oral, NOW, 1 dose, On 02/04/22 at 1999, Indications: Urinary Tract Infection 1940 (Given - Provid er: Vince Yarbrough RN) Ondansetron (ZOFRAN-ODT) disintegrating tablet 4 mg (COMPLETED) 4 mg, Oral, NOW, 1 dose, On 02/04/22 at 1999 1940 (Given - Provid er: Vince Yarbrough RN) phenazopyridine (PYRIDIUM) tablet 100 mg (COMPLETED) 100 mg, Oral, NOW, 1 dose, On Fri02/04/22 at 1999 1940 (Given - Provid er: Vince Yarbrough RN) Scheduled Medication Order 04/16/2022 04/17/2022 04/18/2022 albuterol 2.5mg-ipratropium 0.5mg/3ml (DUONEB) nebulizer soln 6 mL (COMPLETED) 6 mL, Nebulization, ONCE RT, 1 dose, On Mariela 04/18/22 at 1045, Is patient suspected or confirmed to have COVID-19? Yes 1018 (Given - Provid er: Genoveva Sen, FRANCESCA) Albuterol Sulfate nebulizer soln 2.5 mg (COMPLETED) 2.5 mg, Nebulization, ONCE, 1 dose, On Mariela 04/18/22 at 1045, Is patient suspected or confirmed to have COVID-19? Yes 1018 (Given - Provid er: Genoveva Sen, FRANCESCA) methylPREDNISolone sodium succ (SOLU-MEDROL) injection 125 mg (COMPLETED) 125 mg, IV Push, NOW, 1 dose, On Mariela 04/18/22 at 1045 1007 (Given - Provid er: Michelle Tomas RN) Scheduled Medication Order 05/02/2022 05/03/2022 05/04/2022 albuterol 2.5mg-ipratropium 0.5mg/3ml (DUONEB) nebulizer soln 3 mL (COMPLETED) 3 mL, Nebulization, ONCE RT, 1 dose, On [facility] 05/04/22 at 0800, Is patient suspected or confirmed to have COVID-19? Yes 0724 (Given - Provid er: Madeline Godoy RRT) albuterol 2.5mg-ipratropium 0.5mg/3ml (DUONEB) nebulizer soln 9 mL (COMPLETED) 9 mL, Nebulization, ONCE RT, 1 dose, On 05/04/22 at 0800, Is patient suspected or confirmed to have COVID-19? Yes 0757 (Given - Provid er: Madeline Godoy RRT) Albuterol Sulfate nebulizer soln 2.5 mg (COMPLETED) 2.5 mg, Nebulization, ONCE, 1 dose, On 05/04/22 at 0800, Is patient suspected or confirmed to have COVID-19? Yes 0724 (Given - Provid er: Madeline Godoy RRT) methylPREDNISolone sodium succ (SOLU-MEDROL) injection 125 mg (COMPLETED) 125 mg, IV Push, NOW, 1 dose, On 05/04/22 at 0800 0740 (Given - Provid er: Michelle Tomas RN) Scheduled Medication Order 07/15/2022 07/16/2022 07/17/2022 albuterol 2.5mg-ipratropium 0.5mg/3ml (DUONEB) nebulizer soln 9 mL (COMPLETED) 9 mL, Nebulization, ONCE RT, 1 dose, On Fri07/17/22 at 1445, Is patient suspected or confirmed to have COVID-19? Yes 1431 (Given - Provid er: Tracy Saldaña RRT) predniSONE (DELTASONE) tablet 60 mg (COMPLETED) 60 mg, Oral, NOW, 1 dose, On Fri07/17/22 at 1445 1442 (Given - Provid er: Gin Montague LPN) Scheduled Medication Order 05/25/2023 05/26/2023 05/27/2023 albuterol 2.5mg-ipratropium 0.5mg/3ml (DUONEB) nebulizer soln 6 mL (COMPLETED) 6 mL, Nebulization, ONCE RT, 1 dose, On Fri05/27/23 at 1815 1747 (Given - Provid er: Tracy Saldaña RRT) Doxycycline Monohydrate (MONODOX) capsule 100 mg (COMPLETED) 100 mg, Oral, NOW, 1 dose, On Fri05/27/23 at 2000, Indications: Lower Respiratory Tract Infection 1925 (Given - Provid er: Agueda Box RN) predniSONE (DELTASONE) tablet 60 mg (COMPLETED) 60 mg, Oral, NOW, 1 dose, On Fri05/27/23 at 1815 1746 (Given - Provid er: Agueda Box RN) Care Teams (unrecognized sec tion and content) [employer] Relationship Specialty Start Date End Date Gin Banerjee, MERCHANDISING ASSISTANT [address] [place] [address] PCP [facility] 07/07/15 [place] [id number] Kaminski, PT Physical Therapist Physical Therapy 02/15/20 [employer] Relationship Specialty Start Date End Date Gin Banerjee MERCHANDISING ASSISTANT [address] [place] [address] PCP [facility] 07/07/15 [facility]ly [facility] Akhil Gilliam, PT Physical Therapist Physical Therapy 02/15/20 [employer] Manager Relationship Specialty Start Date End Date Gin Banerjee MERCHANDISING ASSISTANT [address] [place] [address] [facility] 07/07/15 Formerly [facility], [facility] Akhil Gilliam, PT Physical Therapist Physical Therapy 02/15/20 [employer] Manager Relationship Specialty Start Date End Date Gin Banerjee MERCHANDISING ASSISTANT [address] [place] [address] [facility] 07/07/15 Formerly [facility], [facility] Akhil Gilliam, PT Physical Therapist Physical Therapy 02/15/20 FOR RECORDS PERTAINING TO PATIENTS WHO ARE OR HAVE BEEN ENROLLED IN A CHEMICAL DEPENDENCY/SUBSTANCEABUSE PROGRAM, SOME INFORMATION MAY BE OMITTED. This clinical summary was aggregated from multiple sources. Caution should be exercised in using it in the provision of clinical care. This summary normalizes information from multiple sources, and as a consequence, information in this document may materially change the coding, format and clinical context of patient data. In addition, data may be omitted in some cases. CLINICAL DECISIONS SHOULD BE BASED ON THE PRIMARY CLINICAL RECORDS. [facility]. provides no warranty or guarantee of the accuracy or completeness of information in this document.
[2023-12-11] MEDS: HYDROcodone Bitartrate/Apap 5/325 Tablet PO (16:03)
[2023-12-11] MEDS: Ketorolac 15 MG/ML Vial IV (16:03)
[2023-12-11] MEDS: Lidocaine 5% Patch 1 PATCH TOPICAL (16:03)
[2023-12-11 16:16] VITALS: BP 112/78; PULSE 72; RESP 18
== END 2023-12-11 16:17 | disposition home or self-care (01) ==
PROVIDERS: Emergency Provider Emergency Medicine; Visit Provider Emergency Medicine
DX: M54.50 Low back pain, unspecified (principal); J44.9 Chronic obstructive pulmonary disease, unspecified; F17.210 Nicotine dependence, cigarettes, uncomplicated; E78.00 Pure hypercholesterolemia, unspecified; I10 Essential (primary) hypertension; Z98.890 Other specified postprocedural states; F41.9 Anxiety disorder, unspecified; N20.0 Calculus of kidney
CPT/HCPCS: 71045; 74176; 80048; 81001; 85025; 93005; 96361; 96374; 96375; 99285; J7030; A4216; J2405